=== PATIENT | female | born 1945 | race Caucasian/White ===

== ENCOUNTER 2020-01-28 13:53 | Outpatient (RCR) | payer MEDICARE, SELFPAY ==
--- NOTE | 2020-01-28 14:52 | PTOPEVAL ---
Thank you for referring Ally Fulton to [facility]. Please review, sign, date and return this plan of care ASHLEY. I agree with and certify that the following plan of care is medically necessary. Referring Physician Date Admitting Provider: Attending Provider: Rob Hadley MD Referring Provider: *PT Outpatient Evaluation Start: 01/28/20 14:13 Freq: Status: Active Protocol: Document 01/28/20 14:13 OWEN (Rec: 01/28/20 14:51 OWEN [id number]) Therapy Assessment Status Assessment Status Assessment Status Evaluation Evaluation Information Problem Diagnosis left hip OA, left hip pain Onset 05/22/19 Subjective Information Pt. reports that she developed Query Text:As Reported By Patient/ leg and back pain Family approximately beginning of May. She states that she would walk daily, but states that pain has limited her ability to walk recently and she now requires a cane. She describes pain in the left groin and occassionally into the low back. She reports she has undergone managed care specialist and accupuncture without relief. She reports that she cannot stand on the left leg to put her pants on without pain and the left leg giving out. Pt. reports that her goal would be to walk without her limp. Prior Level of Function Activity Level (Last 3 Months) Occupation retired Hand Dominance Right Activity of Daily Living Ability Independent Indoor/Home Mobility Independent Community Mobility Independent Stairs Ability Independent Functional Cognition (Planning, Shopping Independent , Taking Medications) Cooking Yes Cleaning Yes Laundry Yes Shopping Yes Driving Yes Pain Assessment Pain Scale Pain Scale Used Numeric (1 - 10) Self Report Pain Assessment Left Groin Reported Pain Level 8 Pain Description Sharp Pain Frequency Chronic Lowest Pain Intensity 8 Greatest Pain Intensity 10 Pain Aggravating Factors Walking Pain Relief Interventions Used By Sitting
== END 2020-02-26 10:37 | disposition home or self-care (01) ==
LOC: CHSPT 13:53
PROVIDERS: Visit Provider Orthopaedic Surgery
DX: M16.12 Unilateral primary osteoarthritis, left hip (principal)
CPT/HCPCS: 97014; 97110; 97161; G0283

== ENCOUNTER 2020-02-06 14:03 | Outpatient (CLI) | payer MEDICARE, SELFPAY ==
--- NOTE | ~2020-02-06 | XR_ITS ---
EXAMINATION: XR lg joint inject/asp w image DATE: 02/06/2020 14:55 INDICATION: Left hip arthritis TECHNIQUE: A time-out was performed to verify the patient's name, date of , and procedure to b e performed. The procedure including the risks, benefits, and alternatives was discussed with the pat ient. Risks discussed included bleeding and infection. The patient understood the risks and agreed to proceed. The skin overlying the left hip joint was prepped and draped in usual sterile fashion. An esthetic was administered with 1% lidocaine subcutaneously. A 22 G needle was advanced under fluoros copic guidance into the joint. Injection of 0.6 mL of Omnipaque 240 confirmed intra-articular positi on of the needle. Subsequently, injectate consisting of 4 mL of a 1:1 mixture of 0.5% bupivacaine: 4 0 mg/mL Depo-Medrol for a total dose of 80 mg Depo-Medrol was instilled. Washout of contrast was seen confirming intra-articular administration. The needle was removed and the entry site was cleaned and dressed. There were no immediate complications. Fluoroscopy exposure time was 0.1 minutes. The tota l number of images was 2. FINDINGS: Real-time fluoroscopy demonstrates the needle in the left hip joint. Patient's pain prior t o procedure:03/31. Patient's pain following the procedure: 12/29. IMPRESSION: 1. Left hip injection of local anesthetic and steroid with decrease in the patient's presenting pain. Reviewed, dictated and finalized at location A. IMPRESSION: 1. Left hip injection of local anesthetic and steroid with decrease in the melvina ent's presenting pain.
== END 2020-02-06 14:04 | disposition home or self-care (01) ==
LOC: CHSIMG 14:06
PROVIDERS: Visit Provider Orthopaedic Surgery
DX: M16.12 Unilateral primary osteoarthritis, left hip (principal)
CPT/HCPCS: 20610; 77002; J1030; Q9965

== ENCOUNTER 2020-06-18 13:35 | Outpatient (CLI) | payer MEDICARE, SELFPAY ==
--- NOTE | ~2020-06-18 | XR_ITS ---
XR hip BI 2V w AP pelvis 06/18/2020 15:20 Indication: Osteoarthritis. Hip pain. Procedure: AP pelvis and 2 views each hip Comparison: No prior studies for comparison. Findings: There is severe osteoarthritis of the hips, left greater than right. There is near complete loss of joint space superiorly with subchondral sclerosis and lucency. Cannot exclude avascular necr osis particularly in the left femoral head. There is advanced spondylosis of the visualized lower lum bar spine. Pelvic rings are intact. Impression: 1: Severe degenerative changes of the hips and lower lumbar spine. Reviewed, dictated and finalized at location A. Impression: 1: Severe degenerative changes of the hips and lower lumbar spine.
--- NOTE | ~2020-06-18 | XR_ITS ---
EXAMINATION: XR lg joint inject/asp add DATE: 06/18/2020 15:24 INDICATION: Left hip pain TECHNIQUE: Timeout at risk/benefit discussion were performed prior to right hip injection. The skin o verlying the left hip joint was prepared and draped in usual sterile fashion. The skin and subcutaneo us tissues were infiltrated with 1% lidocaine for local anesthesia. A 22 G needle was advanced under fluoroscopic guidance into the joint. Injection of 2 mL of Omnipaque 240 confirmed intra-articular p osition of the needle. Subsequently, injectate consisting of 80 mg (2 cc) of Depo-Medrol and 2 cc of 0.5% bupivacaine was instilled. The needle was removed and the entry site was cleaned and dressed. Th ere were no immediate complications. Fluoroscopy exposure time was 0.2 minutes. The DAP for this proc edure was 0.918 Gycm2. FINDINGS: Real-time fluoroscopy demonstrates the needle in the left hip joint. Patient's pain prior t o procedure:02/28. Patient's pain following the procedure: 12/29. IMPRESSION: 1. Successful left hip injection of local anesthetic and steroid with decrease in the patient's prese nting pain. Reviewed, dictated and finalized at location A. IMPRESSION: 1. Successful left hip injection of local anesthetic and steroid with decrease in the patient's presenting pain.
--- NOTE | ~2020-06-18 | XR_ITS ---
EXAMINATION: XR lg joint inject/asp w image DATE: 06/18/2020 15:24 INDICATION: Right hip pain TECHNIQUE: A time-out was performed to verify the patient's name, date of , and procedure to b e performed. The procedure including the risks and benefits was discussed with the patient. Risks dis cussed included bleeding and infection. The patient understood the risks and agreed to proceed. The skin overlying the right hip was prepared and draped in usual sterile fashion. The skin and subcutane ous tissues were infiltrated with 1% lidocaine for local anesthesia. A 22 G needle was advanced under fluoroscopic guidance into the joint. Injection of 2 mL of Omnipaque 240 confirmed intra-articular p osition of the needle. Subsequently, injectate consisting of 80 mg (2 cc) of Depo-Medrol and 2 cc of 0.5% bupivacaine were instilled. The needle was removed and the entry site was cleaned and dressed. T here were no immediate complications. Fluoroscopy exposure time was 0.2 minutes. The DAP for this pro cedure was 0.819 Gycm2. FINDINGS: Real-time fluoroscopy demonstrates the needle in the right hip joint. Patient's pain prior to procedure:03/31. Patient's pain following the procedure: 11/29. IMPRESSION: 1. Successful right hip injection of local anesthetic and steroid with decrease in the patient's pres enting pain. Reviewed, dictated and finalized at location A. IMPRESSION: 1. Successful right hip injection of local anesthetic and steroid with decrease in the patient's presenting pain.
== END 2020-06-18 13:36 | disposition home or self-care (01) ==
PROVIDERS: Visit Provider Orthopaedic Surgery
DX: M16.11 Unilateral primary osteoarthritis, right hip (principal); M16.12 Unilateral primary osteoarthritis, left hip
CPT/HCPCS: 20610; 73521; 77002; J1030; Q9965

== ENCOUNTER 2020-07-02 09:38 | Outpatient (CLI) | payer MEDICARE, SELFPAY ==
--- NOTE | ~2020-07-02 | XR_ITS ---
EXAMINATION: XR lumbar spine 2-3V EXAM DATE: 07/02/2020 10:14 INDICATION: Spondylosis with radiculopathy, lumbar region to bilat hips . Lumbar pain. TECHNIQUE: Lumber spine frontal, lateral, lateral L5-S1 projections for interpretation. There is no prior study for comparison. FINDINGS: Moderate lumbar dextroscoliosis. There is severe lumbar disc disease. About 3 mm retrolist hesis L2 on L3 and L3 on L4 and about 3 mm anterolisthesis L4 on L5. Moderate to severe lumbar facet arthropathy. Sacrum, sacroiliac joints, sacral arcuate lines are intact. IMPRESSION: 1. Advanced lumbar spondylosis. 2. Moderate dextroscoliosis. Reviewed, dictated and finalized at location A. LY ROOM CLERK
--- NOTE | ~2020-07-02 | MR_ITS ---
EXAMINATION: MR lumbar spine wo con DATE: 07/02/2020 10:54 INDICATION: Other spondylosis with radiculopathy. TECHNIQUE: Magnetic resonance imaging (MRI) of the lumbar spine was performed without intravenous con trast. Sequences included sagittal T2-weighted FSE, sagittal T2-weighted FS FSE, sagittal T1-weighted FSE, and axial T2-weighted FSE. COMPARISON: Lumbar spine radiographs 07/02/2020 FINDINGS: There is 19 degrees dextroscoliosis of lumbar spine. There is 3 mm retrolisthesis of L1 on L2, L2 on L3, and L3 on L4 and 4 mm anterolisthesis of L4 on L5. Vertebral body heights are normal. T here is severely decreased disc height from L1-L2 through L5-S1. The distal spinal cord signal intens ity is normal. The conus medullaris is at L1. There is a 2.8 cm cyst in left kidney. The following di sc levels are specifically discussed: L1-L2: The disc is bulging and has an annular fissure. There is severe bilateral facet joint osteoart hritis. There is mild right and moderate left neural foraminal stenosis. There is mild central canal stenosis. L2-L3: The disc is bulging and has an annular fissure. There is mild right and moderate left facet maddy int osteoarthritis. There is mild right and moderate left neural foraminal stenosis. There is mild ce ntral canal stenosis. L3-L4: The disc is bulging and has an annular fissure. There is severe right and moderate left facet joint osteoarthritis. There is moderate right and mild left neural foraminal stenosis. There is mild central canal stenosis. L4-L5: The disc is bulging and has an annular fissure. There is severe bilateral facet joint osteoart hritis. There is mild bilateral neural foraminal stenosis. There is mild central canal stenosis. L5-S1: The disc is bulging and has an annular fissure. There is severe right and moderate left facet joint osteoarthritis. There is mild bilateral neural foraminal stenosis. There is mild central canal stenosis. IMPRESSION: 1. Severe lumbar spondylosis. 2. Lumbar dextroscoliosis. Reviewed, dictated and finalized at location B. PRINTER
== END 2020-07-02 09:39 | disposition home or self-care (01) ==
LOC: CHSIMG 09:43
PROVIDERS: Visit Provider Orthopaedic Surgery
DX: M47.26 Other spondylosis with radiculopathy, lumbar region (principal)
CPT/HCPCS: 72100; 72148

== ENCOUNTER 2021-02-12 09:48 | Outpatient (CLI) | payer MEDICARE, SELFPAY ==
--- NOTE | 2021-02-12 11:08 | ECG_ITS ---
Measurements Intervals [place] Rate: 65 P: 69 MD: 148 QRS: -3 QRSD: 78 T: 35 QT: 415 QTc: 431 Interpretive Statements SINUS RHYTHM POSSIBLE LEFT ATRIAL ENLARGEMENT BASELINE ARTIFACT- I, III, AVR, AVL, AVF, V1-V6 BORDERLINE ECG Electronically Signed On 02-12-2021 11:32:29 CDT by Usman Bolden D.O.
[2021-02-12 11:39] LABS: Basophils Absolute Auto 0.1 K/mm3 (0.0-0.1); Basophils Percent Auto 0.7 % (0.2-1.2); Eosinophils Percent Auto 0.5 % (0-4.4); Hematocrit 44.2 % (37.0-47.0); Immature Granulocyte Absolute 0.02 K/mm3 (0.00-0.031); Immature Granulocyte Percent A 0.2 % (0-0.5); Lymphocytes Absolute Auto 1.98 K/mm3 (0.9-3.2); Mean Corpuscular HGB Conc 31.7 g/dl (32-36); Mean Corpuscular Hemoglobin 31.2 pg (26-34); Mean Corpuscular Volume 98.4 fl (80-100); Mean Platelet Volume 8.6 fl (7.4-10.4); Monocytes Absolute Auto 0.7 K/mm3 (0.1-0.6); Monocytes Percent Auto 8.6 % (2.6-8.5); Neutrophils Absolute Auto 5.8 K/mm3 (1.3-6.7); Platelet Count Result 372 k/mm3 (150-375); Red Blood Count 4.49 M/mm3 (4.2-5.4); Red Cell Distribution Width 13.8 % (11.5-14.5); White Blood Count 8.6 K/mm3 (4.5-10.0)
[2021-02-12 11:47] LABS: Add Urine Microscopic? YES; Appearance Urine Cloudy (Clear); Bilirubin Urine Negative (Negative); Blood Urine Negative (Negative); Color Urine Amber (Yellow); Glucose Urine UA Negative (Negative); Ketones Urine Negative (Negative); Leukocyte Esterase Ur Negative LEU/UL (Negative); Mucus Urine Rare /lpf; Nitrate Urine Negative (Negative); Protein Urine Negative (Negative); Specific Grav Ur 1.019 (1.001-1.035); Squamous Epithelial Cell Urine Rare /hpf (Few); Urobilinogen Urine Negative mg/dL (<2.0); WBC Urine 0-3 /hpf
[2021-02-12 11:49] LABS: Albumin Level 4.3 g/dL (3.5-5.1); Anion Gap 7 mmol/L (8-16); Blood Urea Nitrogen 22 mg/dL (7-17); Calcium 9.6 mg/dL (8.4-10.2); Carbon Dioxide 27 mmol/L (22-30); Chloride 107 mmol/L (98-107); Estimated Glomerular Filt Rate > 60; Glucose 109 mg/dL (65-105); Potassium 4.1 mmol/L (3.4-5.0); Sodium 141 mmol/L (137-145)
[2021-02-12 11:52] LABS: Hemoglobin A1C 5.6 % (<5.7)
[2021-02-12 11:59] LABS: Prothrombin Time 13.3 Seconds (11.1-14.7)
[2021-02-12 12:00] LABS: Partial Thromboplastin Time 27.4 SECONDS (22.3-36.8)
[2021-02-12 12:01] LABS: Urine Cotinine NEGATIVE
== END 2021-02-12 09:49 | disposition home or self-care (01) ==
PROVIDERS: PCP Family Medicine; Visit Provider Orthopaedic Surgery
DX: M16.9 Osteoarthritis of hip, unspecified (principal); Z01.818 Encounter for other preprocedural examination
CPT/HCPCS: 80048; 80307; 81001; 82040; 83036; 85025; 85610; 85730; 86850; 86900; 86901; 87081; 93005

== ENCOUNTER 2021-02-25 13:47 | Observation (INO) | payer MEDICARE, SELFPAY ==
[2021-02-12 10:04] VITALS: BMI 25.4
[2021-02-12 11:07] VITALS: BP 145/73; PULSE 68; RESP 16; TEMP 37; O2SAT 98
[2021-02-24] VITALS (16 sets, daily range): BP systolic 106–153; BP diastolic 45–71; PULSE 64–84; RESP 15–20; TEMP 36.3–37.8; O2SAT 93–100
[2021-02-24] MEDS: ACETAMINOPHEN 500 MG TABLET 1000 MG PO (06:31)
[2021-02-24] MEDS: LACTATED RINGERS 1,000 ML 30 ML IV CONT ×2 (06:35→10:25)
[2021-02-24] MEDS: TRANEXAMIC ACID 1,000MG/ISO100 1,000 MG/100 ML BAG 200 MG IVPB (06:45)
--- NOTE | 2021-02-24 07:04 | WPDANESEPPF ---
Anes - Initial Pre Proc Eval Procedure: Operation Date: 02/24/21 07:30 Proposed Procedures p Right Total Hip Arthroplasty - Piotr Manzano MD Date/Time: 02/24/21 07:04 Surgeon: Piotr Manzano MD Pre Op Diagnosis: Right hip OA Patient Data Age: 76 Gender: F Height: 1.55 m Weight: 59.8 kg Last Vital Signs Temp 98.8 F 02/24/21 06:10 Pulse 70 02/24/21 06:10 Resp 20 02/24/21 06:10 BP 153/60 H 02/24/21 06:10 Pulse Ox 95 02/24/21 06:10 Allergies Allergy/AdvReac Type Severity Reaction Status Date / Time No Known Allergies Allergy Verified 02/24/21 06:20 Home Medications Medication Instructions Recorded Confirmed Type ibuprofen 200 mg tablet 200 mg PO Q6H PRN 06/16/20 02/24/21 History chlorhexidine gluconate 4 % 1 applic TOPICAL ONCE #237 ml 01/20/21 02/24/21 Rx topical liquid acetaminophen 500 mg tablet 500 mg PO DAILY PRN tablet 02/12/21 02/24/21 History fluticasone propionate [Flonase 1 spray INTRANASAL DAILY 02/12/21 02/24/21 History Allergy Relief] glucos sul [id number]-Mn 1 cap PO TID 02/12/21 02/24/21 History [Glucosamine Chondroitin] iron-vitamin B complex 1 tablet PO EVERY OTHER DAY 02/12/21 02/24/21 History meclizine 25 mg chewable tablet 25 mg PO HS 02/12/21 02/24/21 History melatonin 3 mg PO HS 02/12/21 02/24/21 History nkhfy-8l-gcw-epa-fish oil [[place] 3] 1 cap PO TID 02/12/21 02/24/21 History vitamin E 400 unit PO WEEKLY 02/12/21 02/24/21 History vitamins A,C,W-frsk-reeefc 1 cap PO DAILY 02/12/21 02/24/21 History [PreserVision AREDS] zinc 1 mg PO DAILY 02/12/21 02/24/21 History Patient hx anesthesia problems: none Family hx anesthesia problems: none PMFSH Past Medical History Medical History Hip arthritis Obesity Other spondylosis with radiculopathy, lumbar region Social History Social History (Updated 02/12/21 @ 08:55 by Tiffany Heard MA) Years smoked: 55 Smoking status: Never smoker Tobacco type: cigarettes Smoking end date: 01/21/21 Additional smoking assessment comments: DENIES ANY FORM OF TOBACCO USE Alcohol intake: never Drinks per week: 1 Substance use: never Living arrangements: with family Spiritual care concerns: No Anes - Eval Final PreProcedure Day of Procedure 02/24/21 07:04 Patient weight: normal Heart: regular rate and rhythm Lungs: clear to auscultation Airway: Mallampati scale class II Neurological: alert and oriented Last oral intake: >/= 8 hours ASA classification: II Emergent: no Anesthetic plan: proceed Anesthesia type and monitoring: general ETT and standard monitoring Informed Consent: The patient's anesthetic plan and its attendant risks and benefits were discussed with the patient/family/POA. Questions were solicited and answers provided to the satisfaction of the patient/family/POA.
--- NOTE | 2021-02-24 07:15 | WPDHPUPDATE1 ---
History and Physical Update Update Date/Time: 02/24/21 07:15 History and Physical has been reviewed, including an updated exam of the patient. There are NO changes in the patient's condition. Risks, benefits, and alternatives have been discussed and questions answered. Patient agrees to proceed with procedure.
[2021-02-24] MEDS: ceFAZolin 2 GM/D5W 50 ML 2 GM/50 ML BAG IVPB ×2 (07:31→15:41)
--- NOTE | 2021-02-24 10:28 | W.PM.PROC2 ---
Procedure Note - Detailed Date of Procedure 02/24/21 Pre-op Diagnosis Right hip OA Post-op Diagnosis same Procedure Performed R REZA Surgeon Piotr Manzano MD Marketing Coordinator MARANDA CARCAMO MD Anesthesia general Indications RIGHT HIP SEVERE DJD Findings FEMORAL HEAD COLLAPSE Description of Procedure THE PATIENT WAS TAKEN TO THE OPERATING ROOM IN STABLE CONDITION AND WAS PLACED IN THE LATERAL DECUBITUS AND THE RIGHT LOWER EXTREMITY WAS PREPPED AND DRAPED IN THE STERILE FASHION. INCISION WAS MADE IN THE POSTERIOR LATERAL SIDE OF THE HIP, DOWN TO THE FASCIA LAYER. THE FASCIA WAS INCISED. THE HIP WAS EXPOSED. THE SHORT EXTERNAL ROTATORS WERE EXPOSED. THE SCIATIC NERVE WAS IDENTIFIED. THERE WAS A HIGH BIFURCATION OF THE NERVE. INCISION WAS MADE THROUGH THE SORT EXTERNAL ROTATORS AND THE CAPSULE OF THE HIP JOINT. THE HIP WAS DISLOCATED. AN OSTEOTOMY WAS MADE TO THE FEMORAL NECK ABOUT 1 CM PROXIMAL TO THE LESSER TROCHANTER. THE ACETABULUM WAS EXPOSED. THERE WAS SEVERE DJD SEEN. BEGINNING WITH A 44 REAMER THE ACETABULUM WAS REAMED TO 49 MM. A 49 MM TRIAL WAS PLACED IN 35 DEG OF ABDUCTION AND ANTEVERSION WAS IN ALIGNMENT WITH THE TRANSVERSE ACETABULAR LIGAMENT. THE FIT WAS EXCELLENT. THE TRIAL WAS REMOVED. A 50 MM BIOMET G7 COMPONENT WAS THEN TAPPED IN TO PLACE IN 35 DEG OF ABDUCTION AND ANTEVERSION IN ALIGNMENT WITH THE TRANSVERSE ACETABULAR LIGAMENT. THE FIT WAS EXCELLENT. THE ACETABULAR LINER WAS PLACED AND CHECKED FOR STABILITY. NEXT THE FEMUR WAS PREPARED WITH INITIAL CANAL FINDER THEN SEQUENTIAL BROACHING WITH A TAPERLOC HIP SYSTEM, UNTIL A 10 BROACH FIT WELL IN 15 OF ANTEVERSION. A -3 HIGH OFFSET NECK WITH 36 MM HEAD TRIAL WAS PLACED. THE LUKE TEST WAS EXCELLENT AND THE STABILITY IN FLEXION AND ROTATION WAS EXCELLENT. LEG LENGTHS WERE GROSSLY EQUAL. TRIALS WERE REMOVED. A BIOMET TAPERLOC 10 STEM WAS PLACED WITH A HIGH OFFSET NECK. THE FIT WAS EXCELLENT IN 15 DEG OF ANTEVERSION. A -3 CERAMIC 36 MM FEMORAL HEAD WAS PLACED. THE HIP WAS TRIALED AND THE STABILITY WAS EXCELLENT WERE THE LEG LENGTHS AND THE SCHUK TEST. THE WOUND WAS IRRIGATED WITH STERILE BETADINE AND WATER FOR 3 MIN. THEN WASHED AGAIN. THE CAPSULE AND THE EXTERNAL ROTATORS WERE APPROXIMATED WITH NUMBER 1 VICRYL. THE FASCIA WITH No 2 QUIL AND THE SUB CUTANEOUS LAYER WITH 2-0 ABSORBABLE SUTURE WITH A RUNNING 3-0 SUBCUTICULAR LAYER WELL. DERMABOND WAS PLACED AND STERILE DRESSING WAS APPLIED. PATIENT WAS PLACED BACK ON TO THE SUPINE POSITION AND WAS EXTUBATED Estimated Blood Loss 200 Drains No Complications No immediate complications Condition stable Disposition PACU
[2021-02-24] MEDS: fentaNYL CITRATE INJ (*CRX) 100 MCG/2 ML VIAL 25 MCG IV PUSH ×4 (10:40→11:04)
[2021-02-24] MEDS: HYDROmorphone HCL INJ (*CRX) 1 MG/ML SYR 0.25 MG IV PUSH (11:09)
[2021-02-24] MEDS: MEPERIDINE HCL INJ (*CRX) 50 MG/ML AMPUL 12.5 MG IV PUSH (11:11)
--- NOTE | 2021-02-24 12:25 | ADMGEN ---
This patient, Ally Fulton, was admitted to 2 Medical Room 257-01. Patient/family oriented to hospital policies and general routines including ID bracelet, bed and alarms, visiting hours, pain management, procedures, bathroom and other care routines, personal items, smoking policy, room service/diet, and visiting hours. Information on how to activate the Rapid Response Team has been discussed. Patient/Family are encouraged to report perceived risks to care and to ask questions if they do not understand what they are told or what they should do.
[2021-02-24 12:33] LABS: Hemoglobin 12.2 g/dL (12.0-15.0)
[2021-02-24] MEDS: HYDROcodone/acetaminophen (*CRX) 7.5-325 MG TABLET 1 TAB PO ×3 (13:23→20:42)
--- NOTE | 2021-02-24 15:25 | PM.IMCN ---
Assessment and Plan Assessment and plan (1) History of total left hip arthroplasty: Code(s): Z96.642 - Presence of left artificial hip joint Status: Acute Assessment and Plan: The patient is feeling well after her surgery. She has already done physical, occupational therapy and set up in the chair earlier. Pain management, discharge planning, postop care, DVT prophylaxis per orthopedic surgeon medically she is stable at this point. Post op H&H stable. (2) Degenerative joint disease (DJD) of hip: Qualifiers: Laterality: bilateral Osteoarthritis type: primary Qualified Code(s): M16.0 - Bilateral primary osteoarthritis of hip Code(s): M16.9 - Osteoarthritis of hip, unspecified Status: Acute Assessment and Plan: see above (3) Hip arthritis: Code(s): M16.10 - Unilateral primary osteoarthritis, unspecified hip Status: Acute Assessment and Plan: see above (4) Smoking history: Code(s): Z87.891 - Personal history of nicotine dependence Status: Acute Assessment and Plan: patient quit smoking 5 weeks ago. She was only smoking 4-5 cigarettes per day. She has been smoking since 16 years of age. She has not needed any type of nicotine patch. she does not need 1 at this time. Smoking sensation given to continue smoking after her surgery. She does not know if she wants a quit smoking for ever or not. HPI Data of Consult Consult date: 02/24/21 Requesting Physician: Piotr Manzano MD Primary Care Provider: Abdullahi Cardozo DO Consult Narrative Narrative: Ally Fulton is a 76 year old female with a history of severe DJD of bilateral hips, who is admitted into the hospital after having a left Total hip arthroplasty today, 02/24/21. The patient had been having bilateral hip pain for years. She was getting cortisone injections within the past 3 months without much improvement. the patient has not seen a doctor since 1999. She only takes wvyr-vgn-uiczqws medications and vitamins. she reported slight nausea after eating her soup for lunch today, but then it resolved. She denies any chest pain, shortness of breath, fever, chills, vomiting, abdominal pain, Diarrhea, constipation, leg swelling, calf pain, lightheadedness, dizziness or any other symptoms at this time. 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, noncancerous Hx of total hysterectomy 1984- Abnormal uterine bleeding and uterine fibroids found Social History Social History (Updated 02/24/21 @ 16:15 by Nanette Gomes PA-C) Years smoked: 50 Smoking status: Former smoker Alcohol intake: current Drinks per week: 1 Substance use: never Substance use type: does not use Living arrangements: with family Occupation/Education: retired Spiritual care concerns: No Meds Home Medications and Allergies Home Medications Medication Instructions Recorded Confirmed Type ibuprofen 200 mg tablet 200 mg PO Q6H PRN 06/16/20 02/24/21 History chlorhexidine gluconate 4 % 1 applic TOPICAL ONCE #237 ml 01/20/21 02/24/21 Rx topical liquid acetaminophen 500 mg tablet 500 mg PO DAILY PRN tablet 02/12/21 02/24/21 History fluticasone propionate [Flonase 1 spray INTRANASAL DAILY 02/12/21 02/24/21 History Allergy Relief] glucos sul [id number]-Mn 1 cap PO TID 02/12/21 02/24/21 Hi
--- NOTE | 2021-02-24 16:34 | PM.PNORT ---
Progress Note: A&P Assessment and Plan (1) Degenerative joint disease (DJD) of hip: Qualifiers: Osteoarthritis type: primary Laterality: bilateral Qualified Code(s): M16.0 - Bilateral primary osteoarthritis of hip Code(s): M16.9 - Osteoarthritis of hip, unspecified Status: Acute Assessment and Plan: RT REZA this AM. H/H stable Alert, oriented x 3. Pain control. PT/OT- wbat Appreciate hospitalist coverage Subjective Subjective Date/Time Seen: 02/24/21 16:34 Post Op day: 0 Principal diagnosis: RT REZA Interval history: Patient awake, alert. Comfortable Exam Const: General: healthy appearing; No in distress or confusion Orientation/consciousness: patient oriented x3 and No confusion HENMT: Head: normal to inspection, normocephalic and atraumatic Eyes: Conjunctivae: conjunctivae normal Sclera: sclerae normal Resp: Effort & Inspection: normal respiratory effort and no audible wheezes Neuro: General: patient oriented x3 and No confusion Extrem: Right lower extremity: foot Details: toes with normal ROM, vascular exam Details: dorsalis pedis pulse present and normal capillary refill and motor-sensory exam Details: light-touch normal Location: in all toes Psych: Affect: normal affect Objective Data Vital Signs Vital Signs: Vital Signs - 24 hr 02/24/21 06:10 02/24/21 10:30 02/24/21 10:45 Temperature 98.8 F 97.4 F L Pulse Rate 70 64 69 Respiratory Rate 20 18 16 Blood Pressure 153/60 H 120/46 L 137/62 Pulse Oximetry 95 100 100 02/24/21 11:00 02/24/21 11:15 02/24/21 11:30 Temperature Pulse Rate 69 74 80 Respiratory Rate 18 15 16 Blood Pressure 150/71 H 152/57 H 116/49 L Pulse Oximetry 100 100 96 02/24/21 11:45 02/24/21 12:00 02/24/21 12:11 Temperature 100.1 F H 99.1 F 97.7 F Pulse Rate 80 76 82 Respiratory Rate 15 20 16 Blood Pressure 113/53 L 114/55 L 121/53 L Pulse Oximetry 95 96 99 02/24/21 12:26 Temperature 97.7 F Pulse Rate 80 Respiratory Rate 16 Blood Pressure 130/52 L Pulse Oximetry 99 Intake/Output Intake/Output: Intake & Output 02/21/21 02/22/21 02/23/21 02/24/21 23:59 23:59 23:59 23:59 Intake Total 450 Balance 450 Meds/Results Medications: Active Medications Generic Name Dose Route Start Last Admin Trade Name Freq PRN Reason Stop Dose Admin Acetaminophen 500 mg 02/24/21 12:11 Acetaminophen 500 Mg Tablet PO DAILY PRN Pain Hydrocodone Bitart/Acetaminophen 1 tab 02/24/21 12:11 02/24/21 13:23 Hydrocodone/Acetaminophen (*Crx) 7.5-325 Mg Tablet PO 1 tab Q3H PRN Administration Pain Rated 4-6 Al Hydrox/Mg Hydrox/Simethicone 30 ml 02/24/21 12:11 Mag Hydrox/Al Hydrox/Simeth 30 Ml Udc PO Q6H PRN Indigestion Aspirin 325 mg 02/24/21 21:00 Aspirin 325 Mg Enteric Tablet PO Q12HR LEXIE Celecoxib 200 mg 02/25/21 09:00 Celecoxib 200 Mg Capsule PO DAILY LEXIE Diazepam 5 mg 02/24/21 12:11 Diazepam (*Crx) 5 Mg Tablet PO Q6H PRN Anxiety/Muscle Spasm Docusate Sodium 100 mg 02/24/21 17:00 Docusate Sodium 100 Mg Capsule PO BID LEXIE Famotidine 20 mg 02/24/21 21:00 Famotidine 20 Mg Tablet PO Q12HR LEXIE Hydroxyzine HCl 50 mg 02/24/21 12:11 Hydroxyzine Hcl 25 Mg Tablet PO Q4H PRN Itching Cefazolin Sodium 2 gm in 50 mls @ 100 mls/hr 02/24/21 15:00 02/24/21 15:41 Ancef 2 Gm/D5w 50 Ml IVPB 02/25/21 07:29 100 mls/hr Q8H LEXIE Administration Dextrose/Sodium Chloride 1,000 mls @ 80 mls/hr 02/24/21 12:11 Dextrose 5% Sodium Chloride 0.45% IV CONT .[id number] LEXIE Magnesium Hydroxide 30 ml 02/24/21 12:11 Magnesium Hydroxide Susp 30 Ml Udc PO BID PRN Constipation Meclizine HCl 25 mg 02/24/21 21:00 Meclizine Hcl 25 Mg Tablet PO HS LEXIE Melatonin 3 mg 02/24/21 21:00 Melatonin 3 Mg Tablet PO HS LEXIE Morphine Sulfate 3 mg 02/24/21 12:11 Morphine Sulfate (*Crx) 4 Mg/Ml
[2021-02-24] MEDS: DOCUSATE SODIUM 100 MG CAPSULE PO (16:41)
[2021-02-24] MEDS: MECLIZINE HCL 25 MG TABLET PO (20:41)
[2021-02-24] MEDS: MELATONIN 3 MG TABLET PO (20:42)
[2021-02-24] MEDS: ASPIRIN 325 MG ENTERIC TABLET PO (20:42)
[2021-02-24] MEDS: FAMOTIDINE 20 MG TABLET PO (20:42)
[2021-02-25] VITALS (7 sets, daily range): BP systolic 102–131; BP diastolic 43–49; PULSE 73–89; RESP 16–18; TEMP 36.6–37.2; O2SAT 94–98
--- NOTE | ~2021-02-25 | XR_ITS ---
EXAMINATION: XR hip RT 1V DATE: 02/24/2021 10:36 INDICATION: Right hip arthroplasty. Postop. TECHNIQUE: A single view of right hip was obtained. COMPARISON: Right hip radiograph 02/12/2021 FINDINGS: There is a total right hip arthroplasty in near-anatomic alignment. No fracture. There is s evere lumbar spondylosis. There is gas in the soft tissues, consistent with recent surgery. IMPRESSION: 1. Total right hip arthroplasty in near-anatomic alignment. Reviewed, dictated and finalized at location A.
[2021-02-25] MEDS: ceFAZolin 2 GM/D5W 50 ML 2 GM/50 ML BAG IVPB ×2 (00:11→06:44)
[2021-02-25] MEDS: HYDROcodone/acetaminophen (*CRX) 7.5-325 MG TABLET 1 TAB PO ×6 (01:05→20:57)
[2021-02-25 05:46] LABS: Basophils Percent Auto 0.3 % (0.2-1.2); Eosinophils Percent Auto 0.1 % (0-4.4); Hematocrit 34.4 % (37.0-47.0); Immature Granulocyte Absolute 0.06 K/mm3 (0.00-0.031); Immature Granulocyte Percent A 0.4 % (0-0.5); Lymphocytes Absolute Auto 1.94 K/mm3 (0.9-3.2); Lymphocytes Percent Auto 14.1 % (18.3-44.2); Mean Corpuscular Hemoglobin 31.6 pg (26-34); Mean Corpuscular Volume 98.9 fl (80-100); Mean Platelet Volume 8.8 fl (7.4-10.4); Monocytes Percent Auto 14.5 % (2.6-8.5); Neutrophils Absolute Auto 9.7 K/mm3 (1.3-6.7); Neutrophils Percent Auto 70.6 % (45.5-73.1); Platelet Count Result 301 k/mm3 (150-375); Red Blood Count 3.48 M/mm3 (4.2-5.4); Red Cell Distribution Width 14.1 % (11.5-14.5); White Blood Count 13.8 K/mm3 (4.5-10.0)
[2021-02-25 05:50] LABS: Anion Gap 9 mmol/L (8-16); Blood Urea Nitrogen 18 mg/dL (7-17); Calcium 9.1 mg/dL (8.4-10.2); Carbon Dioxide 23 mmol/L (22-30); Chloride 104 mmol/L (98-107); Estimated CRCL calculation 38 ml/min; Estimated Glomerular Filt Rate > 60; Glucose 124 mg/dL (65-105); Potassium 4.1 mmol/L (3.4-5.0); Sodium 136 mmol/L (137-145)
--- NOTE | 2021-02-25 07:44 | WPDANESPN ---
Anes - Prog Note Post-Op Date/Time: 02/25/21 07:44 Cardiovascular status: normal Respiratory status: normal Airway patency: baseline Mental status: baseline Post-Op hydration status: normal Vital Signs: Last Vital Signs Temp 36.6 C 02/25/21 05:30 Pulse 81 02/25/21 05:30 Resp 18 02/25/21 05:30 BP 124/43 L 02/25/21 05:30 Pulse Ox 94 02/25/21 05:30 Pain Score (VAS): 210 I/O: Intake & Output 02/24/21 02/24/21 02/25/21 15:59 23:59 07:59 Intake Total 350 890 500 Output Total 600 300 Balance 350 290 200 Laboratory Tests 02/25/21 05:24 02/25/21 05:24 02/24/21 02/25/21 02/25/21 12:25 05:24 05:24 WBC 13.8 H RBC 3.48 L Hgb 12.2 11.0 L Hct 37.0 34.4 L MCV 98.9 MCH 31.6 MCHC 32.0 RDW 14.1 Plt Count 301 MPV 8.8 Immature Gran % (Auto) 0.4 Neut % (Auto) 70.6 Lymph % (Auto) 14.1 L [place] % (Auto) 14.5 H Eos % (Auto) 0.1 Baso % (Auto) 0.3 Lymph # (Auto) 1.94 [place] # (Auto) 2.0 H Eos # (Auto) 0.0 Baso # (Auto) 0.0 Abs Immat Gran (auto) 0.06 H Absolute Neuts (auto) 9.7 H Absolute Nucleated RBC 0.0 Nucleated RBC % 0.0 Sodium 136 L Potassium 4.1 Chloride 104 Carbon Dioxide 23 Anion Gap 9 BUN 18 H Creatinine 0.80 Estim Creat Clear Calc 38 Estimated GFR > 60 Glucose 124 H Calcium 9.1 Post-procedural complaints: none Patient Feedback: Patient satisfied with anesthetic care.
--- NOTE | 2021-02-25 07:52 | PM.PNORT ---
Progress Note: A&P Assessment and Plan (1) Hip arthritis: Onset Date: 02/24/21 Code(s): M16.10 - Unilateral primary osteoarthritis, unspecified hip Status: Acute Assessment and Plan: postoperative day 1. Right total hip arthroplasty. Pain motion and weight-bearing right hip. Continue with pain medication regimen. H&H stable. Continue to monitor. PT/OT with weight-bearing as tolerated. Patient voiced preference on returning home upon discharge. Will continue to monitor pain control and her ability to ambulate. Subjective Subjective Date/Time Seen: 02/25/21 07:52 Post Op day: 1 Principal diagnosis: Right hip arthritis Interval history: patient awake and alert. Complaints of right hip pain with weight-bearing. States slept well overnight. Exam Const: General: healthy appearing; No in distress or confusion Orientation/consciousness: patient oriented x3 and No confusion HENMT: Head: normal to inspection, normocephalic and atraumatic Eyes: Conjunctivae: conjunctivae normal Sclera: sclerae normal Resp: Effort & Inspection: normal respiratory effort and no audible wheezes Neuro: General: patient oriented x3 and No confusion Extrem: Right lower extremity: hip/thigh ( Incision clean and dry, muscles soft, mild swelling) and foot Details: toes with normal ROM, vascular exam Details: dorsalis pedis pulse present and normal capillary refill and motor-sensory exam Details: light-touch normal Location: in all toes Psych: Affect: normal affect Objective Data Vital Signs Vital Signs: Vital Signs - 24 hr 02/24/21 10:30 02/24/21 10:45 02/24/21 11:00 Temperature 97.4 F L Pulse Rate 64 69 69 Respiratory Rate 18 16 18 Blood Pressure 120/46 L 137/62 150/71 H Pulse Oximetry 100 100 100 02/24/21 11:15 02/24/21 11:30 02/24/21 11:45 Temperature 100.1 F H Pulse Rate 74 80 80 Respiratory Rate 15 16 15 Blood Pressure 152/57 H 116/49 L 113/53 L Pulse Oximetry 100 96 95 02/24/21 12:00 02/24/21 12:11 02/24/21 12:26 Temperature 99.1 F 97.7 F 97.7 F Pulse Rate 76 82 80 Respiratory Rate 20 16 16 Blood Pressure 114/55 L 121/53 L 130/52 L Pulse Oximetry 96 99 99 02/24/21 12:56 02/24/21 14:00 02/24/21 16:38 Temperature 97.7 F 97.9 F Pulse Rate 80 76 Respiratory Rate 16 16 Blood Pressure 130/52 L 129/54 L Pulse Oximetry 99 98 93 02/24/21 17:56 02/24/21 19:31 02/24/21 22:00 Temperature 97.6 F 98.8 F 98.6 F Pulse Rate 84 84 72 Respiratory Rate 16 17 16 Blood Pressure 128/59 L 132/55 L 106/45 L Pulse Oximetry 99 99 94 02/25/21 02:00 02/25/21 05:30 Temperature 99.0 F 97.9 F Pulse Rate 80 81 Respiratory Rate 16 18 Blood Pressure 122/45 L 124/43 L Pulse Oximetry 94 94 Intake/Output Intake/Output: Intake & Output 02/22/21 02/23/21 02/24/21 02/25/21 23:59 23:59 23:59 23:59 Intake Total 1340 500 Output Total 600 300 Balance 740 200 Meds/Results Medications: Active Medications Generic Name Dose Route Start Last Admin Trade Name Freq PRN Reason Stop Dose Admin Acetaminophen 500 mg 02/24/21 12:11 Acetaminophen 500 Mg Tablet PO DAILY PRN Pain Hydrocodone Bitart/Acetaminophen 1 tab 02/24/21 12:11 02/25/21 05:27 Hydrocodone/Acetaminophen (*Crx) 7.5-325 Mg Tablet PO 1 tab Q3H PRN Administration Pain Rated 4-6 Al Hydrox/Mg Hydrox/Simethicone 30 ml 02/24/21 12:11 Mag Hydrox/Al Hydrox/Simeth 30 Ml Udc PO Q6H PRN Indigestion Aspirin 325 mg 02/24/21 21:00 02/24/21 20:42 Aspirin 325 Mg Enteric Tablet PO 325 mg Q12HR LEXIE Administration Celecoxib 200 mg 02/25/21 09:00 Celecoxib 200 Mg Capsule PO DAILY LEXIE Diazepam 5 mg 02/24/21 12:11 Diazepam (*Crx) 5 Mg Tablet PO Q6H PRN Anxiety/Muscle Spasm Docusate Sodium 100 mg 02/24/21 17:00 02/24/21 16:41 Docusate Sodium 100 Mg Capsule PO 100 mg BID LEXIE Administration Famotidine 20 mg 02/24/21 21:00 02/24/21 20:
[2021-02-25] MEDS: CELECOXIB 200 MG CAPSULE PO (08:51)
[2021-02-25] MEDS: FAMOTIDINE 20 MG TABLET PO ×2 (08:51→21:00)
[2021-02-25] MEDS: OPTI-GEN TAB 1 TABLET PO (08:51)
[2021-02-25] MEDS: ZINC SULFATE 220 MG CAPSULE PO (08:51)
[2021-02-25] MEDS: DOCUSATE SODIUM 100 MG CAPSULE PO ×2 (08:51→16:58)
[2021-02-25] MEDS: ASPIRIN 325 MG ENTERIC TABLET PO ×2 (08:51→21:00)
[2021-02-25] MEDS: diazePAM (*CRX) 5 MG TABLET PO (10:36)
--- NOTE | 2021-02-25 14:30 | PM.IMPN ---
Progress Note: A&P Assessment and Plan (1) History of total left hip arthroplasty: Code(s): Z96.642 - Presence of left artificial hip joint Status: Acute Assessment and Plan: The patient is feeling well after her surgery. She is not advancing as fast as she would have thought but her pain is better controlled and she is optimistic. Pain management, discharge planning, postop care, DVT prophylaxis per orthopedic surgeon medically she is stable at this point. Her labs are all stable today after having surgery. She has no acute complaints at this time. I am going to sign off of the patient but if anything arises medically do not hesitate to call me to, evaluate her. (2) Degenerative joint disease (DJD) of hip: Qualifiers: Laterality: bilateral Osteoarthritis type: primary Qualified Code(s): M16.0 - Bilateral primary osteoarthritis of hip Code(s): M16.9 - Osteoarthritis of hip, unspecified Status: Acute Assessment and Plan: see above (3) Hip arthritis: Onset Date: 02/24/21 Code(s): M16.10 - Unilateral primary osteoarthritis, unspecified hip Status: Acute Assessment and Plan: see above (4) Smoking history: Code(s): Z87.891 - Personal history of nicotine dependence Status: Acute Assessment and Plan: patient quit smoking 5 weeks ago. She was only smoking 4-5 cigarettes per day. She has been smoking since 16 years of age. She has not needed any type of nicotine patch. she does not need 1 at this time. Smoking sensation given to continue smoking after her surgery. She does not know if she wants a quit smoking for ever or not. Time Spent With Patient Time with patient: 25 - 35 minutes Subjective Date/time seen: 02/25/21 14:30 Interval history: Date of service 02/25/2021: the patient reports feeling well today. She is not doing as well with PT/ OT as she thought she would 1 day postop. Her pain is better controlled at this time and she is resting. She denies any fevers, chills, nausea, vomiting, abdominal pain, diarrhea, leg swelling, calf pain, chest pain, shortness of breath, sore throat, cough or any other symptoms at this time. Review of Systems Review of Systems: All systems reviewed & are unremarkable except as noted in HPI and below Exam Narrative: Exam Narrative: General: 76-year-old woman Lying in bed Taking a nap. easily arousable. Appears comfortable. In no acute distress. Skin: No jaundice or cyanosis. Good skin turgor. Neck: Full range of motion. Supple. Respiratory: Lungs are clear to auscultation bilaterally. No wheezing, rales or rhonchi. No bony chest wall tenderness. Cardiovascular: The heart has a regular rate and rhythm without murmur. Lower extremities: Hip was not evaluated and was left to the orthopedic surgeon. No lower extremity edema. Distal pulses are easily palpated. No calf tenderness to palpation. Gastrointestinal: The abdomen is soft, nontender and nondistended with active bowel sounds. Psychiatric: Lucid and oriented. Memory intact. Neurologic: No focal deficits. Speech is clear. No facial drooping. Objective Data Vital Signs Vital Signs: Vital Signs - 24 hr 02/24/21 16:38 02/24/21 17:56 02/24/21 19:31 Temperature 97.6 F 98.8 F Pulse Rate 84 84 Respiratory Rate 16 17 Blood Pressure 128/59 L 132/55 L Pulse Oximetry 93 99 99 02/24/21 22:00 02/25/21 02:00 02/25/21 05:30 Temperature 98.6 F 99.0 F 97.9 F Pulse Rate 72 80 81 Respiratory Rate 16 16 18 Blood Pressure 106/45 L 122/45 L 124/43 L Pulse Oximetry 94 94 94 02/25/21 08:51 07/07/21 09:56 Temperature 98.3 F Pulse Rate 74 Respiratory Rate 18 18 Blood Pressure 102/47 L Pulse Oximetry 95 97
[2021-02-25] MEDS: MECLIZINE HCL 25 MG TABLET PO (21:26)
[2021-02-25] MEDS: MELATONIN 3 MG TABLET PO (21:26)
[2021-02-26] MEDS: HYDROcodone/acetaminophen (*CRX) 7.5-325 MG TABLET 1 TAB PO ×5 (04:03→21:32)
[2021-02-26 05:45] VITALS: BP 130/48; PULSE 91; RESP 20; TEMP 36.2; O2SAT 92
--- NOTE | 2021-02-26 07:26 | PM.PNORT ---
Progress Note: A&P Assessment and Plan (1) Hip arthritis: Onset Date: 02/24/21 Code(s): M16.10 - Unilateral primary osteoarthritis, unspecified hip Status: Acute Assessment and Plan: postoperative day 2 right total hip arthroplasty. Patient with pain control issues last night. Confusion about ordering pain medication as needed. Feels better this morning after recent dose. Still without a bowel movement postoperative. Progressing well with PT / OT when pain controlled. Planned closer evaluation of pain level today. Stool softener with observation. Patient would like to return home with family upon discharge. We will see how she does today but most likely plan on discharge tomorrow. Subjective Subjective Date/Time Seen: 02/26/21 07:26 Post Op day: 2 Principal diagnosis: Right hip arthritis Interval history: Awake, difficult sleep last night due to pain rt hip. Tolerating diet. No bm yet. Exam Const: General: healthy appearing; No in distress or confusion Orientation/consciousness: patient oriented x3 and No confusion HENMT: Head: normal to inspection, normocephalic and atraumatic Eyes: Conjunctivae: conjunctivae normal Sclera: sclerae normal Resp: Effort & Inspection: normal respiratory effort and no audible wheezes Neuro: General: patient oriented x3 and No confusion Extrem: Right lower extremity: hip/thigh ( Incision clean and dry, muscles soft, mild swelling) and foot Details: toes with normal ROM, vascular exam Details: dorsalis pedis pulse present and normal capillary refill and motor-sensory exam Details: light-touch normal Location: in all toes Psych: Affect: normal affect Objective Data Vital Signs Vital Signs: Vital Signs - 24 hr 02/25/21 08:51 02/25/21 09:56 02/25/21 14:00 Temperature 98.3 F 98.7 F Pulse Rate 74 75 Respiratory Rate 18 18 18 Blood Pressure 102/47 L 105/46 L Pulse Oximetry 95 97 98 02/25/21 18:00 02/25/21 20:33 02/26/21 05:45 Temperature 98.4 F 97.8 F 97.1 F L Pulse Rate 89 73 91 Respiratory Rate 18 18 20 Blood Pressure 112/46 L 131/49 L 130/48 L Pulse Oximetry 94 97 92 Intake/Output Intake/Output: Intake & Output 02/23/21 02/24/21 02/25/21 02/26/21 23:59 23:59 23:59 23:59 Intake Total 1340 1410 390 Output Total 600 700 500 Balance 740 710 -110 Meds/Results Medications: Active Medications Generic Name Dose Route Start Last Admin Trade Name Freq PRN Reason Stop Dose Admin Acetaminophen 500 mg 02/24/21 12:11 Acetaminophen 500 Mg Tablet PO DAILY PRN Pain Hydrocodone Bitart/Acetaminophen 1 tab 02/24/21 12:11 02/26/21 04:03 Hydrocodone/Acetaminophen (*Crx) 7.5-325 Mg Tablet PO 1 tab Q3H PRN Administration Pain Rated 4-6 Al Hydrox/Mg Hydrox/Simethicone 30 ml 02/24/21 12:11 Mag Hydrox/Al Hydrox/Simeth 30 Ml Udc PO Q6H PRN Indigestion Aspirin 325 mg 02/24/21 21:00 02/25/21 21:00 Aspirin 325 Mg Enteric Tablet PO 325 mg Q12HR LEXIE Administration Celecoxib 200 mg 02/25/21 09:00 02/25/21 08:51 Celecoxib 200 Mg Capsule PO 200 mg DAILY LEXIE Administration Diazepam 5 mg 02/24/21 12:11 02/25/21 10:36 Diazepam (*Crx) 5 Mg Tablet PO 5 mg Q6H PRN Administration Anxiety/Muscle Spasm Docusate Sodium 100 mg 02/24/21 17:00 02/25/21 16:58 Docusate Sodium 100 Mg Capsule PO 100 mg BID LEXIE Administration Famotidine 20 mg 02/24/21 21:00 02/25/21 21:00 Famotidine 20 Mg Tablet PO 20 mg Q12HR LEXIE Administration Hydroxyzine HCl 50 mg 02/24/21 12:11 Hydroxyzine Hcl 25 Mg Tablet PO Q4H PRN Itching Magnesium Hydroxide 30 ml 02/24/21 12:11 Magnesium Hydroxide Susp 30 Ml Udc PO BID PRN Constipation Meclizine HCl 25 mg 02/24/21 21:00 02/25/21 21:26 Meclizine Hcl 25 Mg Tablet PO 25 mg HS LEXIE Administration Melatonin 3 mg 02/24/21 21:00 02/25/21 21:26 Melatonin 3 Mg Tablet PO 3 mg HS LEXIE Ad
[2021-02-26] MEDS: CELECOXIB 200 MG CAPSULE PO (08:09)
[2021-02-26] MEDS: OPTI-GEN TAB 1 TABLET PO (08:09)
[2021-02-26] MEDS: ASPIRIN 325 MG ENTERIC TABLET PO ×2 (08:09→21:34)
[2021-02-26] MEDS: FAMOTIDINE 20 MG TABLET PO ×2 (08:09→21:33)
[2021-02-26] MEDS: ZINC SULFATE 220 MG CAPSULE PO (08:09)
[2021-02-26] MEDS: DOCUSATE SODIUM 100 MG CAPSULE PO ×2 (08:10→18:01)
[2021-02-26 09:16] VITALS: BP 119/54; PULSE 87; RESP 18; TEMP 36.4; O2SAT 95
[2021-02-26 14:00] VITALS: BP 115/55; PULSE 80; RESP 18; TEMP 36.8; O2SAT 96
[2021-02-26 18:00] VITALS: BP 114/48; PULSE 80; RESP 16; TEMP 36.4; O2SAT 96
[2021-02-26 20:23] VITALS: BP 120/47; PULSE 83; RESP 20; TEMP 37; O2SAT 94
[2021-02-26] MEDS: MECLIZINE HCL 25 MG TABLET PO (21:33)
[2021-02-26] MEDS: MELATONIN 3 MG TABLET PO (21:33)
[2021-02-27] MEDS: HYDROcodone/acetaminophen (*CRX) 7.5-325 MG TABLET 1 TAB PO ×3 (02:03→13:23)
[2021-02-27 05:17] VITALS: BP 129/56; PULSE 76; RESP 18; TEMP 36.6; O2SAT 96
[2021-02-27] MEDS: FAMOTIDINE 20 MG TABLET PO (08:05)
[2021-02-27] MEDS: CELECOXIB 200 MG CAPSULE PO (08:05)
[2021-02-27] MEDS: ASPIRIN 325 MG ENTERIC TABLET PO (08:05)
[2021-02-27] MEDS: ZINC SULFATE 220 MG CAPSULE PO (08:06)
[2021-02-27] MEDS: OPTI-GEN TAB 1 TABLET PO (08:06)
[2021-02-27] MEDS: MAGNESIUM HYDROXIDE SUSP 30 ML UDC PO (08:09)
[2021-02-27] MEDS: DOCUSATE SODIUM 100 MG CAPSULE PO (08:09)
--- NOTE | 2021-02-27 08:31 | PM.PNORT ---
Progress Note: A&P Assessment and Plan (1) S/P total hip arthroplasty: Qualifiers: Laterality: right Qualified Code(s): Z96.641 - Presence of right artificial hip joint Code(s): Z96.649 - Presence of unspecified artificial hip joint Status: Acute Assessment and Plan: POD #3: Right REZA Continue PT/OT. WBAT. Walker. HIGH FALL RISK. Continue pain control. Ice lateral hip. DVT prophylaxis. SCDs. Incentive Spirometry. Dressing to be changed today. Dispo: Home with Home Health today pending progress with PT/OT. (2) Constipation due to pain medication: Code(s): K59.03 - Drug induced constipation Status: Acute Assessment and Plan: Continue bowel regimen BID. MOM given this AM. Increase water intake/fiber. Add Miralax daily. Subjective Subjective Date/Time Seen: 02/27/ 08:31 POD #2: Right REZA No new complaints. Pain control improved. Hopeful for discharge home today. Review of Systems Review of Systems: All systems reviewed & are unremarkable except as noted in HPI and below Constitutional: Constitutional: Denies chills, Denies fever(s), Denies headache(s), Denies lethargy and Reports weakness ENT: Denies headache(s) Cardiovascular: Cardiovascular: Denies chest pain, Denies diaphoresis, Denies lightheadedness, Denies palpitations, Denies dyspnea and Denies dyspnea on exertion Respiratory: Respiratory: Denies cough, Denies dyspnea and Denies dyspnea on exertion Gastrointestinal: Gastrointestinal: Reports constipation, Denies diarrhea, Denies nausea and Denies vomiting Genitourinary: Genitourinary: Reports urinary frequency, Denies dysuria and Denies urinary hesitancy Musculoskeletal: Musculoskeletal: Reports joint swelling (Right Hip ) and Reports limited range of motion (Right Hip due to recent surgery ) Neurologic: Denies headache(s) and Reports weakness Endocrine: Endocrine: Denies palpitations Exam Const: General: comfortable and no acute distress Resp: Effort & Inspection: normal respiratory effort Cardio: Rate: regular rate Rhythm: regular rhythm GI: Inspection: non-distended GI Palp: Yes Soft to palpation, No Tenderness to palpation present (GI) and No Guarding due to palpation present (GI) Skin: General skin exam: normal color Other: Incision right hip c/d/i. Surrounding tissue without redness/warmth. Mild swelling consistent with recent surgery. No drainage. Neuro: Cognition (Neuro): normal cognition Speech: normal speech Other: Strength RLE decreased due to recent surgery. +ankle dorsiflexion/plantarflexion. NV intact. Moves toes. Sensaiton intact to light touch. Extrem: Right lower extremity: normal to inspection, normal capillary refill and hip/thigh Details: tenderness Location: of the hip (Thigh soft ) Location: laterally and anteriorly, swelling Location: at the hip, abnormal ROM (limited consistent with recent surgery ) and other (Incision c/d/i. ); no deformity and no unusual warmth Objective Data Vital Signs Vital Signs: Vital Signs - 24 hr 02/26/21 09:16 02/26/21 14:00 02/26/21 18:00 Temperature 36.4 C 36.8 C 36.4 C Pulse Rate 87 80 80 Respiratory Rate 18 18 16 Blood Pressure 119/54 L 115/55 L 114/48 L Pulse Oximetry 95 96 96 02/26/21 20:23 02/27/21 05:17 Temperature 37.0 C 36.6 C Pulse Rate 83 76 Respiratory Rate 20 18 Blood Pressure 120/47 L 129/56 L Pulse Oximetry 94 96 Intake/Output Intake/Output: Intake & Output 02/24/21 02/25/21 02/26/21 02/27/21 23:59 23:59 23:59 23:59 Intake Total 1340 1410 1370 190 Output Total 655 592 0764 300 Balance 740 710 370 -110 Meds/Results Medications: Active Medications Generic Name Dose Route Start Last Admin Trade Name Freq PRN Reason Stop Dose Admin Acetaminophen 500 mg 02/24/21 12:11 Acetaminophen 500 Mg Tablet PO DAILY PRN Pain Hydrocodone Bitart/Acetaminophen 1 tab 02/24/21 12:11 02/27/21 08:06 Hydrocodone/Acetaminophen (*C
[2021-02-27] MEDS: polyethylene glycoL 3350 17 GM POWD.PACK PO (11:44)
--- NOTE | 2021-02-27 14:36 | PM.DS ---
DS: Admitting Diagnosis Admitting Diagnosis Admitting Diagnosis: Right hip DJD DS: Discharge Diagnosis Discharge Diagnosis (1) S/P total hip arthroplasty: Qualifiers: Laterality: right Qualified Code(s): Z96.641 - Presence of right artificial hip joint Code(s): Z96.649 - Presence of unspecified artificial hip joint Status: Acute Assessment and Plan: POD #3: Right REZA Continue PT/OT. WBAT. Walker. HIGH FALL RISK. Continue pain control. Ice lateral hip. DVT prophylaxis. SCDs. Incentive Spirometry. Dressing to be changed today. Dispo: Home with Home Health today pending progress with PT/OT. (2) Constipation due to pain medication: Code(s): K59.03 - Drug induced constipation Status: Acute Assessment and Plan: Continue bowel regimen BID. MOM given this AM. Increase water intake/fiber. Add Miralax daily. DS: Summary Hospital Course Reason for hospitalization: Right total hip arthroplasty Hospital Course: 76-year-old female admitted status post right total hip arthroplasty for postoperative medical care, pain control and mobilization with physical and occupational therapy. Patient had slow progress with PT and OT on postop day 1 and postop day 2. She had difficulty with pain control on both postop day 1 and postop day 2. her labs and vitals remained stable throughout. Her pain was well controlled on the morning of postop day 3 and she was cleared by Physical and Occupational therapy to be discharged home with home health at this time. She will be discharged home with home health and will follow up in the outpatient setting in 3 weeks. She will be discharged home on DVT prophylaxis. Status at Discharge Functional status at discharge: uses cane/walker Overall status at discharge: patient is progressing back to baseline Time Spent with Patient Time attestation: Total time spent providing and/or coordinating discharge services: Exam Const: General: comfortable and no acute distress Resp: Effort & Inspection: normal respiratory effort Cardio: Rate: regular rate Rhythm: regular rhythm GI: Inspection: non-distended Skin: General skin exam: normal color Other: Incision right hip c/d/i. Surrounding tissue without redness/warmth. Mild swelling consistent with recent surgery. No drainage. Neuro: Cognition (Neuro): normal cognition Speech: normal speech Other: Strength RLE decreased due to recent surgery. +ankle dorsiflexion/plantarflexion. NV intact. Moves toes. Sensaiton intact to light touch. Extrem: Right lower extremity: normal to inspection, normal capillary refill and hip/thigh Details: tenderness Location: of the hip (Thigh soft ) Location: laterally and anteriorly, swelling Location: at the hip, abnormal ROM (limited consistent with recent surgery ) and other (Incision c/d/i. ); no deformity and no unusual warmth Discharge Plan Discharge Attending physician on discharge: Piotr Manzano Consulting providers: Nanette Gomes Discharging Clinician: Ct Hodges Anticipated Discharge Date/Time: 02/27/21 12:00 Patient Disposition: Home Health Service Activity: may shower, no driving and follow weight bearing status Diet: as tolerated Wound Care Instructions: follow printed instructions Discharge Instructions: Per Care Coordniation, patient to discharge with [facility] ( ) for PT/OT and long term services. Please fax discharge instructions and medication sheets to . Post Op Total Hip Replacement Instructions Dr. Piotr Manzano [phone] ? Your dressing will be changed prior to your discharge. You will be sent home with one additional dressing to be changed in 5 days by the home health RN. Your incision was closed with dermabond, allow the dermabond to fall off naturally and do not disrupt incision healing. ? You may shower with your dressing but do not submerge in a bath tub. ?
== END 2021-02-27 13:30 | disposition home health service (06) ==
LOC: ANH2MED 14:02
PROVIDERS: Admitting Provider Orthopaedic Surgery; PCP Family Medicine; Visit Provider Orthopaedic Surgery
PROC: (CPT 27130; principal; 2021-02-24 07:30)
DX: M16.0 Bilateral primary osteoarthritis of hip (principal); K59.03 Drug induced constipation; Z87.891 Personal history of nicotine dependence
CPT/HCPCS: 27130; 36415; 73501; 80048; 85014; 85018; 85025; 97110; 97116; 97161; 97165; 97530; 97535; A9270; C1776; G0378; J0171; J0690; J1100; J1170; J2175; J2250; J2270; J2370; J2405; J2704; J2710; J2795; J3010; J7120

== ENCOUNTER 2021-03-10 20:06 | Outpatient (NON) | payer MEDICARE, SELFPAY ==
[2021-03-10 20:18] LABS: Hematocrit 29.2 % (35.0-42.0); Hemoglobin 9.1 g/dL (11.7-13.8); Immature Platelet Fraction Pct 1.1 % (1.0-7.0); Mean Corpuscular HGB Conc 31.2 g/dL (32.0-36.0); Mean Corpuscular Hemoglobin 31.1 pg (27.0-31.0); Mean Corpuscular Volume 99.7 fL (78.0-102.0); Mean Platelet Volume 8.8 fl (9.2-11.8); Platelet Count Result 827 K/mm3 (150-420); Red Blood Count 2.93 M/mm3 (4.20-5.40); Red Cell Distribution Width 14.8 % (11.6-14.4)
[2021-03-10 20:26] LABS: Alanine Aminotransferase 26 U/L (14-59); Albumin Level 3.2 g/dL (3.4-5.0); Alkaline Phosphatase 165 U/L (46-116); Anion Gap 10 mmol/L (8-16); Aspartate Amino Transferase 20 U/L (15-37); Bilirubin,Total 0.3 mg/dL (0.00-1.00); Blood Urea Nitrogen 18 mg/dL (7-18); Carbon Dioxide 27 mmol/L (21-32); Chloride 102 mmol/L (98-108); Estimated Glomerular Filt Rate > 60; Glucose 107 mg/dL (70-99); Magnesium 1.9 mg/dL (1.8-2.4); Osmolality Calculated 289 mOsm/kg (285-295); Potassium 4.4 mmol/L (3.5-5.1); Sodium 139 mmol/L (136-145); Total Protein 6.6 g/dL (6.4-8.2)
[2021-03-10 20:45] LABS: Band Neutrophils Percent 0 % (0-6); Eosinophils Absolute Manual 0.28 K/mm3 (0.02-0.5); Eosinophils Percent Manual 2 % (1-6); Lymphocytes Absolute Manual 0.98 K/mm3 (1.1-4.5); Lymphocytes Percent Manual 7 % (18-44); Monocytes Absolute Manual 0.56 K/mm3 (0.1-0.90); Monocytes Percent Manual 4 % (3-9); Neutrophils Absolute Manual 12.18 K/mm3 (1.7-7.2); Neutrophils Percent Manual 87 % (46-73); Platelet Estimate Increased (Adequate); Total Cells Counted 100
== END 2021-03-10 20:07 | disposition home or self-care (01) ==
PROVIDERS: Nurse Practitioner Family; PCP Family Medicine; Visit Provider Family Medicine
DX: R11.2 Nausea with vomiting, unspecified (principal); R50.9 Fever, unspecified; R63.0 Anorexia
CPT/HCPCS: 36415; 80053; 83735; 85025; 85055

== ENCOUNTER 2021-03-11 12:03 | Emergency (ER) | payer MEDICARE, SELFPAY ==
--- NOTE | ~2021-03-11 | XR_ITS ---
EXAMINATION: XR abdomen obstructive series DATE: 03/11/2021 13:22 INDICATION: Nausea and vomiting TECHNIQUE: Upright and supine views of the abdomen were obtained. COMPARISON: None. FINDINGS: The abdomen is relatively gasless. No dilated loops of bowel are evident. There is no free intraperitoneal gas. Surgical clips project over the left upper quadrant. There is lumbar dextroscoli osis and severe spondylosis. Changes of right total hip arthroplasty are noted. There is advanced ost eoarthritis of the left hip. Phleboliths are present in the pelvis. IMPRESSION: 1. Nonspecific bowel gas pattern. Reviewed, dictated and finalized at location B.
--- NOTE | 2021-03-11 12:33 | ED.GIBLEED ---
HPI - GI Bleed General Chief complaint: GI Bleed Stated complaint: possible intestinal bleeding Time Seen by Provider: 03/11/21 12:33 Source: patient and family Mode of arrival: ambulatory Limitations: no limitations History of Present Illness HPI Narrative: Patient comes in after having total hip replacement on February 24. She had done well initially after discharge. The last few days she has had recurrent nausea, moderately severe, in spite of taking zofran and phenergan at home ongoing since her surgery, ongoing since surgery. Nausea has pretty well resolved though now, since she has stopped taking her narcotics, as she no longer is having enough pain she needs them. She has had a couple of dark stools at home, and the [employer] at the office is afraid she has a GI bleed. It should be noted that until recently she has been taking celebrex, ibuprofen, and aspirin all three at home, daily. No modifying factors. MD complaint: other (dark stools) Onset (ago): day(s) Pain Consistency: intermittent Severity: moderate Relieving factors: none Associated symptoms: nausea and vomiting Related Data Home Medications Medication Instructions Recorded Confirmed celecoxib 200 mg PO HS 03/11/21 03/11/21 hydrocodone-acetaminophen 1 tablet PO Q6-8H PRN 03/11/21 03/11/21 ondansetron 4 mg PO TID 03/11/21 03/11/21 promethazine 25 mg tablet 25 mg PO Q4-6H PRN tablet 03/11/21 03/11/21 Allergies Allergy/AdvReac Type Severity Reaction Status Date / Time No Known Allergies Allergy Verified 03/11/21 11:36 Review of Systems Constitutional: Constitutional: Reports no additional constitutional complaints Eyes: Eyes: Reports no additional eye complaints ENT: Reports system reviewed and no additional complaints, except as documented Cardiovascular: Cardiovascular: Reports no additional cardiovascular complaints Respiratory: Respiratory: Reports no additional respiratory complaints Gastrointestinal: Gastrointestinal: Reports no additional gastrointestinal complaints Genitourinary: Genitourinary: Reports no additional female genitourinary complaints Musculoskeletal: Musculoskeletal: Reports no additional musculoskeletal complaints Integumentary/Breasts: Skin/Breast: Reports system reviewed and no additional complaints, except as docu Neurologic: Reports system reviewed and no additional complaints, except as documented Psychiatric: Psychiatric: Reports no additional psychiatric complaints Endocrine: Endocrine: Reports no additional endocrine complaints Hematologic/Lymphatic: Hematologic/Lymphatic: Reports no additional hematologic/lymphatic complaints Allergic/Immunologic: Allergic/Immunologic: Reports no additional allergic/immunologic complaints PMFSH Past Medical History Medical History Constipation due to pain medication Hip arthritis (02/24/21) Obesity Other spondylosis with radiculopathy, lumbar region Surgical History Surgical History 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, noncancerous Hx of total hysterectomy 1984- Abnormal uterine bleeding and uterine fibroids found S/P total hip arthroplasty Family History Family History Father Asthma Mother Scleroderma Social History Social History Years smoked: 50 Smoking status: Former smoker Alcohol intake: current Drinks per week: 1 Substance use: never Substance use type: does not use Gender identity (if verbalized by the patient): Female Spiritual care concerns: No Exam Const: General: no acute distress and alert Orientation/consciousness: patient oriented x3 HENMT: Head: normal to inspection Ears: external ears normal and TM's normal bilaterally General nose exam: Normal external nose present and Normal nares present Mouth:
[2021-03-11 12:35] VITALS: BP 123/62; PULSE 85; RESP 20; TEMP 36.6; O2SAT 96
[2021-03-11 12:50] VITALS: BP 134/67; PULSE 88; RESP 20; O2SAT 98
[2021-03-11 13:06] LABS: Occult Blood Positive (Negative)
[2021-03-11 13:14] LABS: Basophils Absolute Auto 0.05 K/mm3 (0.00-0.10); Basophils Percent Auto 0.3 % (0.0-1.0); Eosinophils Absolute Auto 0.07 K/mm3 (0.02-0.50); Eosinophils Percent Auto 0.5 % (1.0-6.0); Hematocrit 26.8 % (35.0-42.0); Hemoglobin 8.5 g/dL (11.7-13.8); Immature Granulocyte Absolute 0.11 K/mm3 (0.00-0.00); Immature Granulocyte Percent A 0.7 % (0.0-0.0); Lymphocytes Absolute Auto 1.31 K/mm3 (1.10-4.50); Lymphocytes Percent Auto 8.8 % (18.0-42.0); Mean Corpuscular HGB Conc 31.7 g/dL (32.0-36.0); Mean Corpuscular Hemoglobin 31.7 pg (27.0-31.0); Mean Platelet Volume 8.4 fl (9.2-11.8); Monocytes Absolute Auto 1.03 K/mm3 (0.10-0.90); Monocytes Percent Auto 6.9 % (2.0-11.0); Neutrophils Absolute Auto 12.3 K/mm3 (1.7-7.2); Neutrophils Percent Auto 82.8 % (50.0-70.0); Platelet Count Result 688 K/mm3 (150-420); Red Blood Count 2.68 M/mm3 (4.20-5.40); Red Cell Distribution Width 15.1 % (11.6-14.4); White Blood Count 14.9 K/mm3 (4.8-10.8)
[2021-03-11 13:24] LABS: Lipase 82 U/L (73-393)
[2021-03-11 13:26] LABS: Alanine Aminotransferase 22 U/L (14-59); Albumin Level 2.9 g/dL (3.4-5.0); Alkaline Phosphatase 151 U/L (46-116); Anion Gap 13 mmol/L (8-16); Aspartate Amino Transferase 18 U/L (15-37); Bilirubin,Total 0.3 mg/dL (0.00-1.00); Blood Urea Nitrogen 20 mg/dL (7-18); Calcium 8.7 mg/dL (8.5-10.1); Carbon Dioxide 27 mmol/L (21-32); Chloride 102 mmol/L (98-108); Estimated CRCL calculation 38 ml/min; Estimated Glomerular Filt Rate > 60; Glucose 107 mg/dL (70-99); INR 1.2; Osmolality Calculated 296 mOsm/kg (285-295); Partial Thromboplastin Time 22.4 SEC (23.90-30.70); Prothrombin Time 12.3 Seconds (9.50-12.10); Sodium 142 mmol/L (136-145); Total Protein 6.5 g/dL (6.4-8.2)
[2021-03-11 13:43] LABS: Appearance Urine Clear (Clear); Bilirubin Urine 1+ (Negative); Color Urine Light Yellow (Yellow); Glucose Urine UA Negative (Negative); Ketones Urine Trace (Negative); Leukocyte Esterase Ur Trace LEU/UL (Negative); Nitrate Urine Negative (Negative); Protein Urine Negative (Negative); Urobilinogen Urine 0.2 mg/dL (0.2-1.0)
[2021-03-11 13:48] LABS: Add Urine Microscopic? YES; Bacteria Urine Trace /hpf; Blood Urine Trace-lysed (Negative); Mucus Urine Moderate /lpf; Squamous Epithelial Cell Urine Few /hpf (Few)
[2021-03-11 14:00] VITALS: BP 147/72; PULSE 89; RESP 20; O2SAT 97
[2021-03-11] MEDS: ONDANSETRON HCL ODT 4 MG TABLET PO (14:36)
[2021-03-11 14:39] VITALS: BP 145/68; PULSE 87; RESP 20; O2SAT 96
== END 2021-03-11 14:41 | disposition home or self-care (01) ==
PROVIDERS: Emergency Provider Emergency Medicine; PCP Family Medicine
DX: K92.2 Gastrointestinal hemorrhage, unspecified (principal); R11.2 Nausea with vomiting, unspecified
CPT/HCPCS: 36415; 74019; 80053; 81001; 82272; 83690; 85025; 85610; 85730; 99283; A9270

== ENCOUNTER 2021-03-13 10:30 | Outpatient (NON) | payer MEDICARE, SELFPAY ==
[2021-03-13 10:42] LABS: Basophils Absolute Auto 0.05 K/mm3 (0.00-0.10); Basophils Percent Auto 0.3 % (0.0-1.0); Eosinophils Absolute Auto 0.07 K/mm3 (0.02-0.50); Eosinophils Percent Auto 0.5 % (1.0-6.0); Hematocrit 25.4 % (35.0-42.0); Hemoglobin 8.3 g/dL (11.7-13.8); Immature Granulocyte Absolute 0.12 K/mm3 (0.00-0.00); Immature Granulocyte Percent A 0.8 % (0.0-0.0); Immature Platelet Fraction Pct 0.9 % (1.0-7.0); Lymphocytes Absolute Auto 1.14 K/mm3 (1.10-4.50); Lymphocytes Percent Auto 7.9 % (18.0-42.0); Mean Corpuscular HGB Conc 32.7 g/dL (32.0-36.0); Mean Corpuscular Hemoglobin 32.4 pg (27.0-31.0); Mean Corpuscular Volume 99.2 fL (78.0-102.0); Mean Platelet Volume 8.6 fl (9.2-11.8); Monocytes Absolute Auto 0.84 K/mm3 (0.10-0.90); Monocytes Percent Auto 5.8 % (2.0-11.0); Neutrophils Absolute Auto 12.2 K/mm3 (1.7-7.2); Neutrophils Percent Auto 84.7 % (50.0-70.0); Platelet Count Result 684 K/mm3 (150-420); Red Blood Count 2.56 M/mm3 (4.20-5.40); Red Cell Distribution Width 15.1 % (11.6-14.4); White Blood Count 14.4 K/mm3 (4.8-10.8)
== END 2021-03-13 10:31 | disposition home or self-care (01) ==
LOC: CHSLAB 10:31
PROVIDERS: Visit Provider Nurse Practitioner Family
DX: Z96.641 Presence of right artificial hip joint (principal)
CPT/HCPCS: 36415; 85025; 85055

== ENCOUNTER 2021-03-17 15:41 | Outpatient (CLI) | payer MEDICARE, SELFPAY ==
[2021-03-17 16:11] LABS: Hematocrit 25.4 % (37.0-47.0); Hemoglobin 7.9 g/dL (12.0-15.0)
== END 2021-03-17 15:42 | disposition home or self-care (01) ==
LOC: ANHLAB 15:43
PROVIDERS: PCP Family Medicine; Visit Provider Nurse Practitioner Family
DX: K92.1 Melena (principal)
CPT/HCPCS: 36415; 85014; 85018

== ENCOUNTER 2021-03-31 01:41 | Day surgery (SDC) | payer MEDICARE, SELFPAY ==
[2021-03-19 13:13] VITALS: BMI 24.5
[2021-03-31 11:19] VITALS: BP 124/56; PULSE 84; RESP 16; TEMP 36.7; O2SAT 98; BMI 23.3
--- NOTE | 2021-03-31 11:34 | WPDGICN ---
Assessment and Plan Assessment and plan (1) Fecal occult blood test positive: Code(s): R19.5 - Other fecal abnormalities Status: Acute Assessment and Plan: Patient found to have occult blood in stool. With progressive anemia suspect she may have had some internal bleeding. Plan is for EGD. If this is not fruitful then colonoscopy will be arranged. Patient initially did not wish to procede with this because of her nausea. (2) Anemia: Code(s): D64.9 - Anemia, unspecified Status: Acute Assessment and Plan: Anemia is likely multifactorial after recent hip replacement surgery. Given her occult blood loss we are certainly concerned about GI blood loss. Plan to initially evaluate EGD and she may additionally require additional studies pending results. (3) Nausea: Code(s): R11.0 - Nausea Status: Acute Assessment and Plan: Patient's initial complaint of nausea has persisted she finally notices improvement after 2-3 week trial of omeprazole. It is uncertain if this is incidental. Plan to evaluate with EGD continue omeprazole for the immediate future. (4) History of total left hip arthroplasty: Code(s): Z96.642 - Presence of left artificial hip joint Status: Acute GI Consult Note Consult date/time: 03/31/21 11:34 HPI: Ally Fulton is a 76 year old female presents for EGD. Patient has a history of recent hip replacement on the right. She has underlying arthritis in both hips. After hip replacement she began to have a episodes of nausea. She underwent CBC and was found to be anemic as well. Patient ultimately was identified as having Hemoccult-positive stools. Because of the nausea an EGD was requested. Colonoscopy was also suggested but refused by the patient because of her current nausea. Patient has been treated empirically with omeprazole over the last 2-3 weeks. She states that finally over the last 2 days nausea has abated. She denies any obvious signs of GI blood loss. Her bowel movements appear normal. She has had no other bleeding. No nose bleeds bruises etc.. Family history is noncontributory. 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, noncancerous Hx of total hysterectomy 1984- Abnormal uterine bleeding and uterine fibroids found S/P total hip arthroplasty Family History Family History Father Asthma Mother Scleroderma Sibling Breast cancer Stomach tumor (benign) Social History Social History Years smoked: 50 Alcohol intake: current Drinks per week: 1 Alcohol use details: socially Substance use: never Substance use type: does not use Living arrangements: with family Gender identity (if verbalized by the patient): Female Spiritual care concerns: No Agree to blood products: Yes Meds Home Medications and Allergies Home Medications Medication Instructions Recorded Confirmed Type omeprazole 40 mg PO DAILY #30 cap 03/11/21 03/20/21 Rx ondansetron 4 mg PO TID PRN 03/11/21 03/20/21 History ascorbate calcium (vitamin C) 500 500 mg PO DAILY 03/17/21 03/20/21 History mg tablet fluticasone propionate 50 1 spray INTRANASAL DAILY PRN 03/17/21 03/20/21 History mcg/actuation nasal spray,suspension folic acid 0.8 mg capsule 0.8 mg PO DAILY 03/17/21 03/20/21 History ferrous sulfate 325 mg PO DAILY 03/19/21 03/20/21 History Allergies
--- NOTE | 2021-03-31 11:35 | WPDANESEPPF ---
Anes - Initial Pre Proc Eval Procedure: Operation Date: 03/31/21 12:30 Proposed Procedures p Esophagogastroduodenoscopy - Dexter Melendez MD Date/Time: 03/31/21 11:35 Surgeon: Dexter Melendez MD Pre Op Diagnosis: occult GI bleed, anemia Patient Data Age: 76 Gender: F Height: 1.55 m Weight: 56.2 kg Last Vital Signs Temp 36.7 C 03/31/21 11:19 Pulse 84 03/31/21 11:19 Resp 16 03/31/21 11:19 BP 124/56 L 03/31/21 11:19 Pulse Ox 98 03/31/21 11:19 Allergies Allergy/AdvReac Type Severity Reaction Status Date / Time No Known Allergies Allergy Verified 03/31/21 11:18 Home Medications Medication Instructions Recorded Confirmed Type omeprazole 40 mg PO DAILY #30 cap 03/11/21 03/20/21 Rx ondansetron 4 mg PO TID PRN 03/11/21 03/20/21 History ascorbate calcium (vitamin C) 500 500 mg PO DAILY 03/17/21 03/20/21 History mg tablet fluticasone propionate 50 1 spray INTRANASAL DAILY PRN 03/17/21 03/20/21 History mcg/actuation nasal spray,suspension folic acid 0.8 mg capsule 0.8 mg PO DAILY 03/17/21 03/20/21 History ferrous sulfate 325 mg PO DAILY 03/19/21 03/20/21 History Patient hx anesthesia problems: none Family hx anesthesia problems: none PMFSH Past Medical History Medical History Anemia Constipation due to pain medication Hip arthritis (02/24/21) Obesity Other spondylosis with radiculopathy, lumbar region Surgical History Surgical History 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, noncancerous Hx of total hysterectomy 1984- Abnormal uterine bleeding and uterine fibroids found S/P total hip arthroplasty Family History Family History Father Asthma Mother Scleroderma Sibling Breast cancer Stomach tumor (benign) Social History Social History Years smoked: 50 Alcohol intake: current Drinks per week: 1 Alcohol use details: socially Substance use: never Substance use type: does not use Living arrangements: with family Gender identity (if verbalized by the patient): Female Spiritual care concerns: No Agree to blood products: Yes Anes - Eval Final PreProcedure Day of Procedure 03/31/21 11:35 Patient weight: normal Heart: regular rate and rhythm Lungs: clear to auscultation Airway: Mallampati scale class II Neurological: alert and oriented Last oral intake: >/= 8 hours ASA classification: II Emergent: no Anesthetic plan: proceed Anesthesia type and monitoring: general GIVS and standard monitoring Informed Consent: The patient's anesthetic plan and its attendant risks and benefits were discussed with the patient/family/POA. Questions were solicited and answers provided to the satisfaction of the patient/family/POA.
[2021-03-31] MEDS: LACTATED RINGERS 1,000 ML 150 ML IV CONT (11:37)
[2021-03-31] MEDS: AMPICILLIN 2 GM/NS 100 ML 2 GM/100 ML BAG IVPB (11:40)
[2021-03-31 12:19] VITALS: BP 136/79; PULSE 78; RESP 23; O2SAT 97
[2021-03-31 12:29] VITALS: BP 153/79; PULSE 79; RESP 17; O2SAT 95
[2021-03-31 12:39] VITALS: BP 152/77; PULSE 77; RESP 18; O2SAT 98
== END 2021-03-31 13:00 | disposition home or self-care (01) ==
PROVIDERS: PCP Family Medicine; Visit Provider Internal Medicine Gastroenterology
PROC: 0DJ08ZZ Inspection of Upper Intestinal Tract, Via Natural or Artificial Opening Endoscopic (ICD-10-PCS; CPT 43235; principal; 2021-03-31 12:30)
DX: R19.5 Other fecal abnormalities (principal); D64.9 Anemia, unspecified; R11.0 Nausea
CPT/HCPCS: 43239; 87081; J0290; J2704; J7120

== ENCOUNTER 2021-04-06 17:28 | Outpatient (NON) | payer MEDICARE, SELFPAY ==
[2021-04-06 18:27] LABS: Basophils Absolute Auto 0.06 K/mm3 (0.00-0.10); Basophils Percent Auto 0.8 % (0.0-1.0); Eosinophils Absolute Auto 0.13 K/mm3 (0.02-0.50); Eosinophils Percent Auto 1.7 % (1.0-6.0); Hematocrit 34.7 % (35.0-42.0); Hemoglobin 10.7 g/dL (11.7-13.8); Immature Granulocyte Absolute 0.02 K/mm3 (0.00-0.00); Immature Granulocyte Percent A 0.3 % (0.0-0.0); Lymphocytes Absolute Auto 1.75 K/mm3 (1.10-4.50); Lymphocytes Percent Auto 22.7 % (18.0-42.0); Mean Corpuscular HGB Conc 30.8 g/dL (32.0-36.0); Mean Corpuscular Hemoglobin 31.3 pg (27.0-31.0); Mean Corpuscular Volume 101.5 fL (78.0-102.0); Mean Platelet Volume 9.1 fl (9.2-11.8); Monocytes Absolute Auto 0.78 K/mm3 (0.10-0.90); Monocytes Percent Auto 10.1 % (2.0-11.0); Neutrophils Percent Auto 64.4 % (50.0-70.0); Platelet Count Result 488 K/mm3 (150-420); Red Blood Count 3.42 M/mm3 (4.20-5.40); White Blood Count 7.7 K/mm3 (4.8-10.8)
== END 2021-04-06 17:29 | disposition home or self-care (01) ==
LOC: CHSLAB 17:31
PROVIDERS: PCP Family Medicine; Visit Provider Family Medicine
DX: D64.9 Anemia, unspecified (principal)
CPT/HCPCS: 36415; 85025

== ENCOUNTER 2021-04-10 04:51 | Day surgery (SDC) | payer MEDICARE, SELFPAY ==
[2021-04-03 14:58] VITALS: BMI 24.5
--- NOTE | 2021-04-10 07:53 | WPDANESEPPF ---
Anes - Initial Pre Proc Eval Procedure: Operation Date: 04/10/21 09:30 Proposed Procedures p Colonoscopy - Dexter Melendez MD Date/Time: 04/10/21 07:53 Surgeon: Dexter Melendez MD Pre Op Diagnosis: occult GI bleed, anemia Patient Data Age: 76 Gender: F Height: 1.55 m Weight: 59 kg Allergies Allergy/AdvReac Type Severity Reaction Status Date / Time No Known Allergies Allergy Verified 04/03/21 14:54 Home Medications Medication Instructions Recorded Confirmed Type ondansetron 4 mg PO TID PRN 03/11/21 04/03/21 History ascorbate calcium (vitamin C) 500 500 mg PO DAILY 03/17/21 04/03/21 History mg tablet fluticasone propionate 50 1 spray INTRANASAL DAILY PRN 03/17/21 04/03/21 History mcg/actuation nasal spray,suspension folic acid 0.8 mg capsule 0.8 mg PO DAILY 03/17/21 04/03/21 History ferrous sulfate 325 mg PO DAILY 03/19/21 04/03/21 History omeprazole 40 mg capsule,delayed 40 mg PO DAILY #30 cap 04/06/21 Rx release Patient hx anesthesia problems: none Family hx anesthesia problems: none PMFSH Past Medical History Medical History Anemia Constipation due to pain medication Hip arthritis (02/24/21) Obesity Other spondylosis with radiculopathy, lumbar region Surgical History Surgical History 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, noncancerous Hx of total hysterectomy 1984- Abnormal uterine bleeding and uterine fibroids found S/P total hip arthroplasty Family History Family History Father Asthma Mother Scleroderma Sibling Breast cancer Stomach tumor (benign) Social History Social History Years smoked: 50 Alcohol intake: current Drinks per week: 1 Alcohol use details: socially Substance use: never Substance use type: does not use Living arrangements: with family Gender identity (if verbalized by the patient): Female Spiritual care concerns: No Agree to blood products: Yes Anes - Eval Final PreProcedure Day of Procedure 04/10/21 07:53 Patient weight: normal Heart: regular rate and rhythm Lungs: clear to auscultation and normal air movement Airway: Mallampati scale class II Neurological: alert and oriented Last oral intake: >/= 8 hours ASA classification: II Emergent: no Anesthetic plan: proceed Anesthesia type and monitoring: general GIVS Informed Consent: The patient's anesthetic plan and its attendant risks and benefits were discussed with the patient/family/POA. Questions were solicited and answers provided to the satisfaction of the patient/family/POA.
[2021-04-10] MEDS: LACTATED RINGERS 1,000 ML 150 ML IV CONT (08:47)
[2021-04-10] MEDS: AMPICILLIN 2 GM/NS 100 ML 2 GM/100 ML BAG IVPB (08:47)
[2021-04-10 08:58] VITALS: BP 142/70; PULSE 75; RESP 20; TEMP 36.3; O2SAT 100; BMI 22.8
--- NOTE | 2021-04-10 09:06 | WPDHPUPDATE1 ---
History and Physical Update Update Date/Time: 04/10/21 09:06 History and Physical has been reviewed, including an updated exam of the patient. There are NO changes in the patient's condition. Risks, benefits, and alternatives have been discussed and questions answered. Patient agrees to proceed with procedure.
[2021-04-10 09:54] VITALS: BP 140/64; PULSE 72; RESP 24; O2SAT 98
[2021-04-10 10:04] VITALS: BP 161/83; PULSE 77; RESP 20; O2SAT 99
[2021-04-10 10:14] VITALS: BP 167/85; PULSE 70; RESP 22; O2SAT 100
== END 2021-04-10 10:31 | disposition home or self-care (01) ==
PROVIDERS: PCP Family Medicine; Visit Provider Internal Medicine Gastroenterology
PROC: 0DJD8ZZ Inspection of Lower Intestinal Tract, Via Natural or Artificial Opening Endoscopic (ICD-10-PCS; CPT 45378; principal; 2021-04-10 09:30)
DX: R19.5 Other fecal abnormalities (principal); K62.1 Rectal polyp; D64.9 Anemia, unspecified; R11.0 Nausea; Z96.641 Presence of right artificial hip joint; K59.03 Drug induced constipation; Z90.710 Acquired absence of both cervix and uterus; Z90.81 Acquired absence of spleen; K57.30 Diverticulosis of large intestine without perforation or abscess without bleeding
CPT/HCPCS: 45385; 88305; J0290; J2704; J7120

== ENCOUNTER 2021-05-05 08:07 | Outpatient (CLI) | payer MEDICARE, SELFPAY ==
--- NOTE | ~2021-05-05 | XR_ITS ---
EXAMINATION: XR hip RT min 2V EXAM DATE: 05/05/2021 08:34 INDICATION: Right hip pain, postoperative follow-up. TECHNIQUE: Frontal and frog lateral projections of the right hip. Comparison is made to prior examin ation from 03/20/2021.. FINDINGS: Right hip arthroplasty hardware in expected position. There are no acute fractures identif ied. The soft tissue is unremarkable. Advanced lower lumbar spondylosis. IMPRESSION: Intact right hip arthroplasty. Reviewed, dictated and finalized at location B.
== END 2021-05-05 08:08 | disposition home or self-care (01) ==
LOC: CHSIMG 08:10
PROVIDERS: PCP Family Medicine; Visit Provider Orthopaedic Surgery
DX: M25.551 Pain in right hip (principal)
CPT/HCPCS: 73502

== ENCOUNTER 2021-05-22 07:59 | Outpatient (CLI) | payer MEDICARE, SELFPAY ==
[2021-05-22 09:55] LABS: Basophils Absolute Auto 0.1 K/mm3 (0.0-0.1); Basophils Percent Auto 0.6 % (0.2-1.2); Eosinophils Absolute Auto 0.1 K/mm3 (0-0.3); Hematocrit 43.8 % (37.0-47.0); Hemoglobin 13.7 g/dL (12.0-15.0); Immature Granulocyte Absolute 0.02 K/mm3 (0.00-0.031); Immature Granulocyte Percent A 0.2 % (0-0.5); Lymphocytes Absolute Auto 1.29 K/mm3 (0.9-3.2); Lymphocytes Percent Auto 15.6 % (18.3-44.2); Mean Corpuscular HGB Conc 31.3 g/dl (32-36); Mean Corpuscular Hemoglobin 30.7 pg (26-34); Mean Corpuscular Volume 98.2 fl (80-100); Monocytes Absolute Auto 0.6 K/mm3 (0.1-0.6); Monocytes Percent Auto 7.4 % (2.6-8.5); Neutrophils Absolute Auto 6.2 K/mm3 (1.3-6.7); Neutrophils Percent Auto 75.2 % (45.5-73.1); Platelet Count Result 383 k/mm3 (150-375); Red Blood Count 4.46 M/mm3 (4.2-5.4); Red Cell Distribution Width 14.6 % (11.5-14.5); White Blood Count 8.3 K/mm3 (4.5-10.0)
[2021-05-22 10:06] LABS: Add Urine Microscopic? YES; Appearance Urine Clear (Clear); Bilirubin Urine Negative (Negative); Blood Urine Negative (Negative); Color Urine Yellow (Yellow); Glucose Urine UA Negative (Negative); Ketones Urine Negative (Negative); Leukocyte Esterase Ur 1+ LEU/UL (Negative); Mucus Urine Rare /lpf; Nitrate Urine Negative (Negative); Protein Urine Negative (Negative); RBC Urine 0-2 /hpf (0-2); Specific Grav Ur 1.016 (1.001-1.035); Squamous Epithelial Cell Urine Rare /hpf (Few); Urobilinogen Urine Negative mg/dL (<2.0)
[2021-05-22 10:12] LABS: INR 0.9; Prothrombin Time 12.5 Seconds (11.1-14.7)
[2021-05-22 10:14] LABS: Albumin Level 4.6 g/dL (3.5-5.1); Anion Gap 9 mmol/L (8-16); Blood Urea Nitrogen 28 mg/dL (7-17); Calcium 9.3 mg/dL (8.4-10.2); Carbon Dioxide 26 mmol/L (22-30); Chloride 106 mmol/L (98-107); Estimated Glomerular Filt Rate > 60; Glucose 101 mg/dL (65-110); Potassium 4.5 mmol/L (3.4-5.0); Sodium 141 mmol/L (137-145)
[2021-05-22 10:29] LABS: Urine Cotinine NEGATIVE
[2021-05-22 11:56] LABS: Hemoglobin A1C 5.2 % (<5.7)
== END 2021-05-22 08:00 | disposition home or self-care (01) ==
PROVIDERS: PCP Family Medicine; Visit Provider Orthopaedic Surgery
DX: M16.12 Unilateral primary osteoarthritis, left hip (principal); Z01.818 Encounter for other preprocedural examination
CPT/HCPCS: 80048; 80307; 81001; 82040; 83036; 85025; 85610; 85730; 86850; 86900; 86901; 87081

== ENCOUNTER 2021-06-03 15:24 | Observation (INO) | payer MEDICARE, SELFPAY ==
[2021-05-22 08:36] VITALS: BP 128/67; PULSE 61; RESP 18; TEMP 37.4; O2SAT 97; BMI 23.6
--- NOTE | 2021-06-01 15:39 | WPDANESEPPF ---
Anes - Initial Pre Proc Eval Procedure: Operation Date: 06/02/21 07:30 Proposed Procedures p Left Total Hip Arthroplasty - Piotr Manzano MD Date/Time: 06/01/21 15:39 Surgeon: Piotr Manzano MD Pre Op Diagnosis: Left Hip DJD Patient Data Age: 76 Gender: F Height: 1.55 m Weight: 56.6 kg Last Vital Signs Temp 37.4 C 05/22/21 08:36 Pulse 61 05/22/21 08:36 Resp 18 05/22/21 08:36 BP 128/67 05/22/21 08:36 Pulse Ox 97 05/22/21 08:36 Allergies Allergy/AdvReac Type Severity Reaction Status Date / Time No Known Allergies Allergy Verified 06/02/21 06:38 Home Medications Medication Instructions Recorded Confirmed Type ondansetron 4 mg PO TID PRN 03/11/21 05/22/21 History ascorbate calcium (vitamin C) 500 500 mg PO DAILY 03/17/21 06/02/21 History mg tablet fluticasone propionate 50 1 spray INTRANASAL DAILY PRN 03/17/21 06/02/21 History mcg/actuation nasal spray,suspension ferrous sulfate 325 mg PO DAILY 03/19/21 06/02/21 History meclizine [Bonine] 25 mg PO HS 04/10/21 06/02/21 History vitamin A-vit C-vit E-zinc-Cu 1 tablet PO DAILY 04/10/21 06/02/21 History [Vision-Danyelle Preserve] chlorhexidine gluconate 4 % 1 applic TOPICAL ONCE #237 ml 05/12/21 05/22/21 Rx topical liquid acetaminophen 500 mg PO Q6H PRN 05/22/21 06/02/21 History cod liver oil 1 cap PO DAILY 05/22/21 06/02/21 History famotidine [Pepcid] 20 mg PO DAILY 05/22/21 06/02/21 History Patient hx anesthesia problems: none Family hx anesthesia problems: none Results Review: All pre-operative results and documents have been reviewed as part of the pre-operative evaluation. 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, noncancerous Hx of total hysterectomy 1984- Abnormal uterine bleeding and uterine fibroids found S/P total hip arthroplasty Family History Family History Father Asthma Mother Scleroderma Sibling Breast cancer Stomach tumor (benign) Social History Social History Smoking packs per day: 0.5 Smoking cigarettes per day: 10.0 Years smoked: 50 Smoking pack-years: 25.00 Smoking status: Former smoker Alcohol intake: current Drinks per week: 1 Alcohol use details: socially Substance use: never Substance use type: does not use Living arrangements: alone Gender identity (if verbalized by the patient): Female Sexual Orientation (if Verbalized by the Patient): Straight or Heterosexual Spiritual care concerns: No Agree to blood products: Yes Anes - Eval Final PreProcedure Day of Procedure 06/01/21 15:39 Patient weight: normal Heart: regular rate and rhythm Lungs: clear to auscultation and normal air movement Airway: Mallampati scale class II Neurological: alert and oriented Last oral intake: >/= 8 hours ASA classification: II Emergent: no Anesthetic plan: proceed Anesthesia type and monitoring: general LMA and ETT Results Review: All pre-operative results and documents have been reviewed as part of the pre-operative evaluation. Informed Consent: The patient's anesthetic plan and its attendant risks and benefits were discussed with the patient/family/POA. Questions were solicited and answers provided to the satisfaction of the patient/family/POA.
[2021-06-02] VITALS (17 sets, daily range): BP systolic 111–150; BP diastolic 51–75; PULSE 58–86; RESP 12–20; TEMP 36.1–37.2; O2SAT 94–100
[2021-06-02] MEDS: ACETAMINOPHEN 500 MG TABLET 1000 MG PO (06:42)
[2021-06-02] MEDS: LACTATED RINGERS 1,000 ML 30 ML IV CONT ×3 (07:03→11:30)
[2021-06-02] MEDS: TRANEXAMIC ACID 1,000MG/ISO100 1,000 MG/100 ML BAG 200 MG IVPB (07:04)
--- NOTE | 2021-06-02 07:26 | WPDHPUPDATE1 ---
History and Physical Update Update Date/Time: 06/02/21 07:26 History and Physical has been reviewed, including an updated exam of the patient. There are NO changes in the patient's condition. Risks, benefits, and alternatives have been discussed and questions answered. Patient agrees to proceed with procedure.
--- NOTE | 2021-06-02 07:37 | WPDHPUPDATE1 ---
History and Physical Update Update Date/Time: 06/02/21 07:37 History and Physical has been reviewed, including an updated exam of the patient. There are NO changes in the patient's condition. Risks, benefits, and alternatives have been discussed and questions answered. Patient agrees to proceed with procedure. will proceed with left total hip replacement
[2021-06-02] MEDS: ceFAZolin 2 GM/D5W 50 ML 2 GM/50 ML BAG IVPB ×3 (07:42→23:04)
[2021-06-02] MEDS: TRANEXAMIC ACID 1,000 MG/10 ML AMPUL 1000 MG IV PUSH (10:01)
--- NOTE | 2021-06-02 10:29 | W.PM.PROC2 ---
Procedure Note - Detailed Date of Procedure 06/02/21 Pre-op Diagnosis Left Hip DJD Post-op Diagnosis same Procedure Performed LEFT REZA Surgeon Piotr Manzano MD Anesthesia spinal Description of Procedure THE PATIENT WAS TAKEN TO THE OPERATING ROOM IN STABLE CONDITION AND A SPINAL ANESTHESIA WAS PREFORMED.SHE WAS PLACED IN THE LATERAL DECUBITUS AND THE LEFT LOWER EXTREMITY WAS PREPPED AND DRAPED IN THE STERILE FASHION. INCISION WAS MADE IN THE POSTERIOR LATERAL SIDE OF THE HIP, DOWN TO THE FASCIA LAYER. THE FASCIA WAS INCISED. THE HIP WAS EXPOSED. THE SHORT EXTERNAL ROTATORS WERE EXPOSED. THE SCIATIC NERVE WAS IDENTIFIED. THERE WAS A HIGH BIFURCATION OF THE NERVE. INCISION WAS MADE THROUGH THE SORT EXTERNAL ROTATORS AND THE CAPSULE OF THE HIP JOINT. THE HIP WAS DISLOCATED. AN OSTEOTOMY WAS MADE TO THE FEMORAL NECK ABOUT 1 CM PROXIMAL TO THE LESSER TROCHANTER. THE ACETABULUM WAS EXPOSED. THERE WAS SEVERE DJD SEEN. BEGINNING WITH A 44 REAMER THE ACETABULUM WAS REAMED TO 50 MM. A 50 MM TRIAL WAS PLACED IN 35 DEG OF ABDUCTION AND ANTEVERSION WAS IN ALIGNMENT WITH THE TRANS ACETABULAR LIGAMENT. THE FIT WAS EXCELLENT. THE TRIAL WAS REMOVED. A 50 MM BIOMET G7 COMPONENT WAS THEN TAPPED IN TO PLACE IN 35 DEG OF ABDUCTION AND ANTEVERSION IN ALIGNMENT WITH THE TRANSVERSE ACETABULAR LIGAMENT. THE FIT WAS EXCELLENT. 2 SCREWS WERE PLACED FOR EXTRA STABILITY. THE ACETABULAR LINER WAS PLACED AND CHECKED FOR STABILITY. NEXT THE FEMUR WAS PREPARED WITH INITIAL CANAL FINDER THEN SEQUENTIAL BROACHING WITH A TAPERLOC HIP SYSTEM, UNTIL AN 11 BROACH FIT WELL IN 15 OF ANTEVERSION. A +0 HIGH OFFSET NECK WITH 36 MM HEAD TRIAL WAS PLACED. THE SHUCK TEST WAS EXCELLENT AND THE STABILITY IN FLEXION AND ROTATION WAS EXCELLENT. LEG LENGTHS WERE GROSSLY EQUAL. TRIALS WERE REMOVED. A BIOMET TAPERLOC 11 STEM WAS PLACED WITH A HIGH OFFSET NECK THE FIT WAS EXCELLENT IN 15 DEG OF ANTEVERSION. A +0 CERAMIC 36 MM FEMORAL HEAD WAS PLACED. THE HIP WAS TRIALED AND THE STABILITY WAS EXCELLENT WERE THE LEG LENGTHS AND THE SHUCK TEST. THE WOUND WAS IRRIGATED WITH STERILE BETADINE AND WATER FOR 3 MIN. THEN WASHED AGAIN. THE CAPSULE AND THE EXTERNAL ROTATORS WERE APPROXIMATED WITH NUMBER 1 VICRYL. THE FASCIA WITH No 2 QUIL AND THE SUB CUTANEOUS LAYER WITH 2-0 ABSORBABLE SUTURE WITH A RUNNING 3-0 SUBCUTICULAR LAYER WELL. DERMABOND WAS PLACED AND STERILE DRESSING WAS APPLIED. PATIENT WAS PLACED BACK ON TO THE SUPINE POSITION AND WAS SENT TO THE RECOVERY ROOM Estimated Blood Loss -150.0 Complications No immediate complications Condition stable Disposition PACU
[2021-06-02] MEDS: fentaNYL CITRATE INJ (*CRX) 100 MCG/2 ML VIAL 25 MCG IV PUSH (11:31)
--- NOTE | 2021-06-02 12:10 | ADMGEN ---
This patient, Ally Fulton, was admitted to 2 Medical Room 247-. Patient/family oriented to hospital policies and general routines including ID bracelet, bed and alarms, visiting hours, pain management, procedures, bathroom and other care routines, personal items, smoking policy, room service/diet, and visiting hours. Information on how to activate the Rapid Response Team has been discussed. Patient/Family are encouraged to report perceived risks to care and to ask questions if they do not understand what they are told or what they should do.
[2021-06-02] MEDS: KCL 20 MEQ/D5/0.45% SOD CHL 1,000 ML 80 ML IV CONT (12:37)
[2021-06-02] MEDS: oxyCODONE HCL (*CRX) 5 MG TAB IR PO ×3 (12:37→23:05)
[2021-06-02 12:38] LABS: Hematocrit 39.1 % (37.0-47.0); Hemoglobin 12.3 g/dL (12.0-15.0)
--- NOTE | 2021-06-02 14:04 | PM.IMCN ---
Assessment and Plan Assessment and plan (1) History of total left hip arthroplasty: Code(s): Z96.642 - Presence of left artificial hip joint Status: Acute Assessment and Plan: postop care per Ortho. Patient denies any nausea vomiting at this time. PT OT per Dr. Manzano. Postop care per Dr. Manzano. Pain management per Dr. Manzano. The patient plans on going home to recover. (2) Anemia: Code(s): D64.9 - Anemia, unspecified Status: Acute Assessment and Plan: At this time her H&H is stable. Please continue to monitor. (3) Chronic GERD: Code(s): K21.9 - Gastro-esophageal reflux disease without esophagitis Status: Acute Assessment and Plan: Patient is on Pepcid and Zofran. HPI Data of Consult Consult date: 06/02/21 Requesting Physician: Piotr Manzano MD Primary Care Provider: Abdullahi Cardozo DO Consult Narrative Narrative: Ally Fulton is a 76 year old female who has a history of having a right hip replacement on 02/24/2021 and did well except for some nausea and vomiting. the patient was found to be anemic after her hip replacement and was positive for occult blood. The patient had a GI workup and did not find a cause of her occult blood. The patient has severe osteoarthritis [id number] to both hips. The patient agreed to undergo a left total hip arthroplasty today per Dr. Manzano. Please see operative note. Patient has no complaints at this time. According to the surgical notes patient had estimated blood loss of 150 without any complications. Last H&H today 12.3 and 39.1. The patient is are regular scd and the hospitalist group was asked to consult. I think the orthopedic group for this consultation. She was consulted on the date of service 06/02/2021 Review of Systems Review of Systems: All systems reviewed & are unremarkable except as noted in HPI and below Constitutional: Constitutional: Reports as per HPI and Reports no additional constitutional complaints Eyes: Eyes: Reports as per HPI and Reports no additional eye complaints ENT: Reports system reviewed and no additional complaints, except as documented and Reports Normal hearing present Cardiovascular: Cardiovascular: Reports no additional cardiovascular complaints Respiratory: Respiratory: Reports no additional respiratory complaints and Reports no additional respiratory complaints Gastrointestinal: Gastrointestinal: Reports as per HPI and Reports no additional gastrointestinal complaints Musculoskeletal: Musculoskeletal: Reports no additional musculoskeletal complaints Integumentary/Breasts: Skin/Breast: Reports system reviewed and no additional complaints, except as docu and Reports as per HPI Neurologic: Reports system reviewed and no additional complaints, except as documented, Reports as per HPI and Reports Normal hearing present Psychiatric: Psychiatric: Reports no additional psychiatric complaints and Reports as per HPI Endocrine: Endocrine: Reports no additional endocrine complaints Hematologic/Lymphatic: Hematologic/Lymphatic: Reports no additional hematologic/lymphatic complaints Allergic/Immunologic: Allergic/Immunologic: Reports no additional allergic/immunologic complaints [facility] Past Medical History Medical History (Updated 06/02/21 @ 14:22 by Elva Ivey NP) Anemia Chronic GERD Constipation due to pain medication Hip arthritis (02/24/21) Obesity Other spondylosis with radiculopathy, lumbar region Surgical History Surgical History (Updated 06/02/21 @ 14:10 by Elva Ivey NP) 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
--- NOTE | 2021-06-02 14:42 | PCPTNOTE ---
On 06/02/21, the student, Carlos A Sarmiento, provided care and completed [facility] documentation on this patient. I have reviewed the student's documentation and agree with the findings.
[2021-06-02] MEDS: MORPHINE SULFATE (*CRX) 4 MG/ML INJ 3 MG IV PUSH ×2 (14:59→20:30)
[2021-06-02] MEDS: RIVAROXABAN 10 MG TABLET PO (16:33)
[2021-06-02] MEDS: DOCUSATE SODIUM 100 MG CAPSULE PO (16:33)
[2021-06-02] MEDS: MECLIZINE HCL 25 MG TABLET PO (20:29)
[2021-06-03] VITALS (8 sets, daily range): BP systolic 109–142; BP diastolic 48–58; PULSE 72–88; RESP 16–20; TEMP 36.4–37.6; O2SAT 92–98
--- NOTE | ~2021-06-03 | XR_ITS ---
XR hip LT 1V DATE: 06/02/2021 10:40 INDICATION: Left total hip replacement TECHNIQUE: Postoperative AP view COMPARISON: None FINDINGS: Status post left femoral head and neck resection and total hip arthroplasty. There is mild expected postoperative subcutaneous emphysema. Diffuse osteopenia. IMPRESSION: Status post left total hip arthroplasty Reviewed, dictated and finalized at location B.
[2021-06-03] MEDS: MORPHINE SULFATE (*CRX) 4 MG/ML INJ 3 MG IV PUSH (02:15)
[2021-06-03 05:40] LABS: Basophils Percent Auto 0.2 % (0.2-1.2); Eosinophils Percent Auto 0.2 % (0-4.4); Hematocrit 34.4 % (37.0-47.0); Immature Granulocyte Absolute 0.05 K/mm3 (0.00-0.031); Immature Granulocyte Percent A 0.4 % (0-0.5); Lymphocytes Absolute Auto 1.83 K/mm3 (0.9-3.2); Lymphocytes Percent Auto 14.9 % (18.3-44.2); Mean Corpuscular Hemoglobin 31.1 pg (26-34); Mean Corpuscular Volume 97.2 fl (80-100); Mean Platelet Volume 8.6 fl (7.4-10.4); Monocytes Absolute Auto 1.7 K/mm3 (0.1-0.6); Monocytes Percent Auto 13.5 % (2.6-8.5); Neutrophils Absolute Auto 8.7 K/mm3 (1.3-6.7); Neutrophils Percent Auto 70.8 % (45.5-73.1); Platelet Count Result 274 k/mm3 (150-375); Red Blood Count 3.54 M/mm3 (4.2-5.4); Red Cell Distribution Width 14.6 % (11.5-14.5); White Blood Count 12.3 K/mm3 (4.5-10.0)
[2021-06-03 05:56] LABS: Anion Gap 4 mmol/L (8-16); Blood Urea Nitrogen 13 mg/dL (7-17); Calcium 8.4 mg/dL (8.4-10.2); Carbon Dioxide 28 mmol/L (22-30); Chloride 101 mmol/L (98-107); Estimated CRCL calculation 50 ml/min; Estimated Glomerular Filt Rate > 60; Glucose 120 mg/dL (65-110); Potassium 4.4 mmol/L (3.4-5.0); Sodium 133 mmol/L (137-145)
[2021-06-03] MEDS: oxyCODONE HCL (*CRX) 5 MG TAB IR PO ×3 (06:17→20:22)
[2021-06-03] MEDS: ceFAZolin 2 GM/D5W 50 ML 2 GM/50 ML BAG IVPB (08:15)
[2021-06-03] MEDS: FERROUS SULFATE 324 MG TABLET PO (08:15)
[2021-06-03] MEDS: ASCORBIC ACID 500 MG TABLET PO (08:16)
[2021-06-03] MEDS: FAMOTIDINE 20 MG TABLET PO (08:16)
[2021-06-03] MEDS: OPTI-GEN TAB 1 TABLET PO (08:16)
[2021-06-03] MEDS: DOCUSATE SODIUM 100 MG CAPSULE PO ×2 (08:16→17:33)
[2021-06-03] MEDS: CELECOXIB 200 MG CAPSULE PO (08:16)
[2021-06-03] MEDS: ACETAMINOPHEN 500 MG TABLET PO (08:18)
--- NOTE | 2021-06-03 11:30 | PM.IMPN ---
Progress Note: A&P Assessment and Plan (1) History of total left hip arthroplasty: Code(s): Z96.642 - Presence of left artificial hip joint Status: Acute Assessment and Plan: Postop care per Ortho. PT OT per Dr. Manzano. Pain management per Dr. Manzano. Discharge planning per Dr. Manzano. (2) Anemia: Code(s): D64.9 - Anemia, unspecified Status: Acute Assessment and Plan: Patient states after her last joint replacement she had issues with anemia and was admitted into our hospital where she had an EGD and colonoscopy which found no acute reasons for her anemia. She was started on iron and PPI and her H&H have slowly improved back to normal. At this time her H&H is stable. Please continue to monitor. (3) Chronic GERD: Code(s): K21.9 - Gastro-esophageal reflux disease without esophagitis Status: Acute Assessment and Plan: Patient is on Pepcid and Zofran. Time Spent With Patient Time with patient: 25 - 35 minutes Subjective Date/time seen: 06/03/21 11:30 Interval history: Date of Service 06/03/21: Patient reports having some pain after her surgery yesterday and after working with physical therapy this morning. She denies any lightheadedness, dizziness, hematochezia, melena, nausea, vomiting, abdominal pain, chest pain, shortness of breath, cough, leg swelling, calf pain, or any other symptoms at this time. Review of Systems Review of Systems: All systems reviewed & are unremarkable except as noted in HPI and below Exam Narrative: General: 76-year-old woman laying flat in bed resting, watching TV. Appears comfortable. In no acute distress. Skin: No jaundice or cyanosis. Good skin turgor. Neck: Full range of motion. Supple. Respiratory: Lungs are clear to auscultation bilaterally. No bony chest wall tenderness. Cardiovascular: The heart has a regular rate and rhythm without murmur. No carotid bruits. Lower extremities: Ice pack in place to left hip. No lower extremity edema. Distal pulses are easily palpated. No calf tenderness to palpation. Gastrointestinal: The abdomen is soft, nontender and nondistended with active bowel sounds. Psychiatric: Lucid and oriented. Memory intact. Neurologic: No focal deficits. Speech is clear. No facial drooping. Objective Data Vital Signs Vital Signs: Vital Signs - 24 hr 06/02/21 11:45 06/02/21 12:10 06/02/21 12:25 Temperature 97.0 F L 97.4 F L Pulse Rate 75 70 67 Respiratory Rate 18 18 18 Blood Pressure 119/66 111/75 128/57 L Pulse Oximetry 94 98 100 06/02/21 12:55 06/02/21 13:55 06/02/21 18:00 Temperature 98.3 F 97.5 F L 98.5 F Pulse Rate 66 69 86 Respiratory Rate 18 20 18 Blood Pressure 127/51 L 150/66 H 112/55 L Pulse Oximetry 99 98 98 06/02/21 20:00 06/02/21 20:22 06/02/21 20:23 Temperature 99 F 99 F Pulse Rate 86 83 83 Respiratory Rate 20 18 18 Blood Pressure 132/55 L 132/55 L Pulse Oximetry 98 95 95 06/02/21 20:24 06/03/21 00:25 06/03/21 04:20 Temperature 99.6 F 99 F Pulse Rate 86 88 84 Respiratory Rate 20 18 20 Blood Pressure 109/49 L 124/54 L Pulse Oximetry 98 92 94 06/03/21 04:21 06/03/21 10:10 Temperature 99 F 98.1 F Pulse Rate 84 77 Respiratory Rate 20 16 Blood Pressure 124/54 L 110/58 L Pulse Oximetry 94 97 Intake/Output Intake/Output: Intake & Output 05/31/21 06/01/21 06/02/21 06/03/21 23:59 23:59 23:59 23:59 Intake Total 1940 360 Output Total 700 400 Balance 1240 -40 Meds/Results Medications: Active Medications Generic Name Dose Route Start Last Admin Trade Name Freq PRN Reason Stop Dose Admin Acetaminophen 500 mg 06/02/21 10:38 06/03/21 08:18 Acetaminophen 500 Mg Tablet PO 500 mg Q6H PRN Administration Pain Ascorbic Acid 500 mg 06/03/21 09:00 06/03/21 08:16 Ascorbic Acid 500 Mg Tablet PO 500 mg DAILY LEXIE Administration Celecoxib 200 mg 06/03/21 09:00 06/03/21 08:16 Celecoxib 200 Mg Cap
--- NOTE | 2021-06-03 14:24 | WPDANESPN ---
Anes - Prog Note Post-Op Date/Time: 06/03/21 14:24 Cardiovascular status: normal Respiratory status: normal Airway patency: baseline Mental status: baseline Post-Op hydration status: normal Vital Signs: Last Vital Signs Temp 36.7 C 06/03/21 10:10 Pulse 77 06/03/21 10:10 Resp 16 06/03/21 10:10 BP 110/58 L 06/03/21 10:10 Pulse Ox 97 06/03/21 10:10 Pain Score (VAS): 2 I/O: Intake & Output 06/02/21 06/03/21 06/03/21 23:59 07:59 15:59 Intake Total 990 190 410 Output Total 400 400 Balance 590 -210 410 Laboratory Tests 06/03/21 05:19 06/03/21 05:18 06/03/21 06/03/21 05:18 05:19 WBC 12.3 H RBC 3.54 L Hgb 11.0 L Hct 34.4 L MCV 97.2 MCH 31.1 MCHC 32.0 RDW 14.6 H Plt Count 274 MPV 8.6 Immature Gran % (Auto) 0.4 Neut % (Auto) 70.8 Lymph % (Auto) 14.9 L [place] % (Auto) 13.5 H Eos % (Auto) 0.2 Baso % (Auto) 0.2 Lymph # (Auto) 1.83 [place] # (Auto) 1.7 H Eos # (Auto) 0.0 Baso # (Auto) 0.0 Abs Immat Gran (auto) 0.05 H Absolute Neuts (auto) 8.7 H Absolute Nucleated RBC 0.0 Nucleated RBC % 0.0 Sodium 133 L Potassium 4.4 Chloride 101 Carbon Dioxide 28 Anion Gap 4 L BUN 13 D Creatinine 0.60 L Estim Creat Clear Calc 50 Estimated GFR > 60 Glucose 120 H Calcium 8.4 Post-procedural complaints: none Patient Feedback: Patient satisfied with anesthetic care.
--- NOTE | 2021-06-03 15:06 | PM.PNORT ---
Progress Note: A&P Additional Plan POD 1 DOING WELL. HAVING SOME PAIN CONTROL ISSUES. SHE WILL CONTINUE PT AND MOST LIKELY READY FOR D/C TOMORROW. 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[place] INTACT [employer]G [employer] SIGN Objective Data Vital Signs Vital Signs: Vital Signs - 24 hr 06/02/21 18:00 06/02/21 20:00 06/02/21 20:22 Temperature 36.9 C 37.2 C Pulse Rate 86 86 83 Respiratory Rate 18 20 18 Blood Pressure 112/55 L 132/55 L Pulse Oximetry 98 98 95 06/02/21 20:23 06/02/21 20:24 06/03/21 00:25 Temperature 37.2 C 37.6 C Pulse Rate 83 86 88 Respiratory Rate 18 20 18 Blood Pressure 132/55 L 109/49 L Pulse Oximetry 95 98 92 06/03/21 04:20 06/03/21 04:21 06/03/21 10:10 Temperature 37.2 C 37.2 C 36.7 C Pulse Rate 84 84 77 Respiratory Rate 20 20 16 Blood Pressure 124/54 L 124/54 L 110/58 L Pulse Oximetry 94 94 97 Intake/Output Intake/Output: Intake & Output 05/31/21 06/01/21 06/02/21 06/03/21 23:59 23:59 23:59 23:59 Intake Total 1940 600 Output Total 700 400 Balance 1240 200 Meds/Results Medications: Active Medications Generic Name Dose Route Start Last Admin Trade Name Freq PRN Reason Stop Dose Admin Acetaminophen 500 mg 06/02/21 10:38 06/03/21 08:18 Acetaminophen 500 Mg Tablet PO 500 mg Q6H PRN Administration Pain Ascorbic Acid 500 mg 06/03/21 09:00 06/03/21 08:16 Ascorbic Acid 500 Mg Tablet PO 500 mg DAILY LEXIE Administration Celecoxib 200 mg 06/03/21 09:00 06/03/21 08:16 Celecoxib 200 Mg Capsule PO 200 mg DAILY LEXIE Administration Diazepam 5 mg 06/02/21 10:45 Diazepam (*Crx) 5 Mg Tablet PO Q6H PRN Anxiety/Muscle Spasm Docusate Sodium 100 mg 06/02/21 17:00 06/03/21 08:16 Docusate Sodium 100 Mg Capsule PO 100 mg BID LEXIE Administration Famotidine 20 mg 06/03/21 09:00 06/03/21 08:16 Famotidine 20 Mg Tablet PO 20 mg DAILY LEXIE Administration Fentanyl Citrate 25 mcg 06/01/21 15:39 06/02/21 11:31 Fentanyl Citrate Inj (*Crx) 100 Mcg/2 Ml Vial IV PUSH 25 mcg Q2M PRN Administration Pain Ferrous Sulfate 324 mg 06/03/21 09:00 06/03/21 08:15 Ferrous Sulfate 324 Mg Tablet PO 324 mg DAILY LEXIE Administration Magnesium Hydroxide 30 ml 06/02/21 10:39 Magnesium Hydroxide Susp 30 Ml Udc PO BID PRN Constipation Meclizine HCl 25 mg 06/02/21 21:00 06/02/21 20:29 Meclizine Hcl 25 Mg Tablet PO 25 mg HS LEXIE Administration Morphine Sulfate 3 mg 06/02/21 10:39 06/03/21 02:15 Morphine Sulfate (*Crx) 4 Mg/Ml Inj IV PUSH 3 mg Q3H PRN Administration Pain Rated 7-10 Multivitamins/Minerals 1 tablet 06/03/21 09:00 06/03/21 08:16 Opti-Gen Tab PO 1 tablet QAM LEXIE Administration Naloxone HCl 0.1 mg 06/02/21 10:39 Naloxone Hcl 0.4 Mg/Ml Vial IV PUSH Q2M PRN Opiate Reversal Ondansetron HCl 4 mg 06/01/21 15:39 Ondansetron Inj 4 Mg/2 Ml Vial IV PUSH ONCE PRN Nausea Ondansetron HCl 4 mg 06/02/21 10:38 Ondansetron Hcl Odt 4 Mg Tablet PO TID PRN Nausea Ondansetron HCl 4 mg 06/02/21 10:45 Ondansetron Inj 4 Mg/2 Ml Vial IV PUSH Q4H PRN Nausea And Vomiting Oxycodone HCl 5 mg 06/02/21 10:39 06/03/21 14:24 Oxycodone Hcl (*Crx) 5 Mg Tab Ir PO 5 mg Q4H PRN Administration Pain Rated 4-6 Rivaroxaban 10 mg 06/02/21 17:00 06/02/21 16:33 Rivaroxaban 10 Mg Tablet PO 07/06/21 17:01 10 mg DAILY@1700 [facility] Administration Radiology Results: ITS Impressions Hip X-Ray 06/02/21 10:47 IMPRESSION: Status post left total hip arthroplasty Labs Labs: Laboratory Results - last 24 hr 06/03/21 06/03/21 05:18 05:19 WBC 12.3 H RBC 3.54 L Hgb 11.0 L Hct 34.4 L MCV 97.2 MCH 31.1 MCHC 32.0 RDW 14.6 H Plt Count 274 MPV 8.6 Immature Gran
[2021-06-03] MEDS: RIVAROXABAN 10 MG TABLET PO (17:33)
[2021-06-03] MEDS: MECLIZINE HCL 25 MG TABLET PO (20:23)
[2021-06-04] MEDS: oxyCODONE HCL (*CRX) 5 MG TAB IR PO ×2 (02:31→08:05)
[2021-06-04 05:03] VITALS: BP 108/42; PULSE 84; RESP 16; TEMP 36.5; O2SAT 91
[2021-06-04 05:48] LABS: Hematocrit 31.5 % (37.0-47.0); Hemoglobin 10.2 g/dL (12.0-15.0)
[2021-06-04] MEDS: OPTI-GEN TAB 1 TABLET PO (08:06)
[2021-06-04] MEDS: DOCUSATE SODIUM 100 MG CAPSULE PO (08:06)
[2021-06-04] MEDS: FAMOTIDINE 20 MG TABLET PO (08:06)
[2021-06-04] MEDS: CELECOXIB 200 MG CAPSULE PO (08:06)
[2021-06-04] MEDS: FERROUS SULFATE 324 MG TABLET PO (08:06)
[2021-06-04] MEDS: ASCORBIC ACID 500 MG TABLET PO (08:06)
--- NOTE | 2021-06-04 09:12 | PM.PNORT ---
Progress Note: A&P Assessment and Plan (1) S/P total hip arthroplasty: Qualifiers: Laterality: right Qualified Code(s): Z96.641 - Presence of right artificial hip joint Code(s): Z96.649 - Presence of unspecified artificial hip joint Status: Acute Assessment and Plan: POD #2: Left REZA Continue PT/OT. REZA precautions. Fall Risk. WBAT. Walker. Pain control. Ice. Bowel Regimen. DVT prophylaxis. SCDs. Incentive Spirometry. Monitor dressing. Change prior to discharge. Dispo: Home with Home Health likely today pending progress with PT/OT. Subjective Subjective Date/Time Seen: 06/04/21 09:12 Review of Systems Constitutional: Constitutional: Denies chills, Denies fatigue, Denies fever(s), Denies night sweats and Denies weakness Cardiovascular: Cardiovascular: Denies chest pain, Denies lightheadedness, Denies palpitations and Denies dyspnea Respiratory: Respiratory: Denies cough, Denies dyspnea and Denies wheezing Gastrointestinal: Gastrointestinal: Denies abdominal pain, Denies diarrhea, Denies nausea and Denies vomiting Musculoskeletal: Musculoskeletal: Reports arthralgias (left hip ), Reports joint swelling (left hip ) and Denies numbness Neurologic: Denies numbness and Denies weakness Endocrine: Endocrine: Denies fatigue and Denies palpitations Allergic/Immunologic: Allergic/Immunologic: Denies wheezing Exam Const: General: comfortable and no acute distress Resp: Effort & Inspection: normal respiratory effort Cardio: Rate: regular rate Rhythm: regular rhythm GI: Inspection: non-distended Skin: General skin exam: normal color Wounds: wounds noted (incision left hip C/D/I ) Extrem: Left lower extremity: hip/thigh Details: tenderness Location: of the hip Location: laterally and anteriorly, swelling (thigh soft ) Location: of the hip (lateral. ), abnormal ROM (limitations with internal/external rotation and flexion/extension due to recent surgical intervention ) and other (incision lateral hip c/d/i. ), knee Details: normal to inspection and normal ROM; no tenderness and no swelling, lower leg (Negative Wilfrido's Sign ) Details: no edema, ankle (+ankle dorsiflexion/plantarflexion ) Details: normal to inspection, no edema and normal ROM; no tenderness, no swelling and no warmth and foot Details: normal capillary refill, toes with normal ROM, vascular exam Details: dorsalis pedis pulse present and motor-sensory exam light-touch normal in all toes; no tenderness, no ecchymosis and no crepitus Psych: Mental Status: mental status grossly normal Affect: normal affect Objective Data Vital Signs Vital Signs: Vital Signs - 24 hr 06/03/21 10:10 06/03/21 14:10 06/03/21 18:00 Temperature 36.7 C 36.5 C 36.6 C Pulse Rate 77 72 78 Respiratory Rate 16 16 18 Blood Pressure 110/58 L 120/54 L 142/54 H Pulse Oximetry 97 97 92 06/03/21 20:00 06/03/21 20:18 06/04/21 05:03 Temperature 36.4 C L 36.5 C Pulse Rate 79 79 84 Respiratory Rate 20 20 16 Blood Pressure 133/48 L 108/42 L Pulse Oximetry 98 98 91 Intake/Output Intake/Output: Intake & Output 06/01/21 06/02/21 06/03/21 06/04/21 23:59 23:59 23:59 23:59 Intake Total 1940 1120 Output Total 700 700 300 Balance 1240 420 -300 Meds/Results Medications: Active Medications Generic Name Dose Route Start Last Admin Trade Name Freq PRN Reason Stop Dose Admin Acetaminophen 500 mg 06/02/21 10:38 06/03/21 08:18 Acetaminophen 500 Mg Tablet PO 500 mg Q6H PRN Administration Pain Ascorbic Acid 500 mg 06/03/21 09:00 06/04/21 08:06 Ascorbic Acid 500 Mg Tablet PO 500 mg DAILY LEXIE Administration Celecoxib 200 mg 06/03/21 09:00 06/04/21 08:06 Celecoxib 200 Mg Capsule PO 200 mg DAILY LEXIE Administration Diazepam 5 mg 06/02/21 10:45 Diazepam (*Crx) 5 Mg Tablet PO Q6H PRN Anxiety/Muscle Spasm Docusate Sodium 100 mg 06/02/21 17:00 06/04/21 08:06 Docusate Sodium 100 M
[2021-06-04 12:13] VITALS: BP 128/48; PULSE 72
--- NOTE | 2021-06-04 12:42 | PM.DS ---
DS: Admitting Diagnosis Discharge Date 06/04/2021 Admitting Diagnosis left hip DJD DS: Discharge Diagnosis Discharge Diagnosis (1) S/P total hip arthroplasty: Qualifiers: Laterality: right Qualified Code(s): Z96.641 - Presence of right artificial hip joint Code(s): Z96.649 - Presence of unspecified artificial hip joint Status: Acute Assessment and Plan: POD #2: Left REZA Continue PT/OT. REZA precautions. Fall Risk. WBAT. Walker. Pain control. Ice. Bowel Regimen. DVT prophylaxis. SCDs. Incentive Spirometry. Monitor dressing. Change prior to discharge. Dispo: Home with Home Health likely today pending progress with PT/OT. DS: Summary Hospital Course Reason for hospitalization: left total hip arthroplasty Hospital Course: 76-year-old female admitted status post left total hip arthroplasty for postoperative medical care, pain control and mobilization with physical and occupational therapy. Patient had difficulty with pain control on postop day 1. She improved on postop day 2. She is working well with PT and OT. She feels safe to be discharged home at this time. She has been cleared from a medical and physical therapy/occupational therapy standpoint as well. Reviewed total knee arthroplasty precautions. Reviewed need for walker at all times. Patient to follow-up in the outpatient orthopedic clinic as previously scheduled. Status at Discharge Functional status at discharge: uses cane/walker Overall status at discharge: patient is progressing back to baseline Time Spent with Patient Time attestation: Total time spent providing and/or coordinating discharge services: Time spent: Less than 30 minutes DS: Data Data Completed and Pending Labs on day of discharge: Labs from last 24 hours 06/04/21 05:30 Hgb 10.2 L Hct 31.5 L Discharge Plan Discharge Attending physician on discharge: Piotr Manzano Consulting providers: Elijah Francisco ; Nanette Gomes Discharging Clinician: Ct Hodges Anticipated Discharge Date/Time: 06/04/21 15:00 Patient Disposition: Home Health Service Activity: may shower and no driving Diet: as tolerated Wound Care Instructions: follow printed instructions Discharge Instructions: Post Op Total Hip Replacement Instructions Dr. Piotr Manzano ? Your dressing will be changed prior to your discharge. You will be sent home with one additional dressing to be changed in 5 days by the home health RN. Your incision was closed with dermabond, allow the dermabond to fall off naturally and do not disrupt incision healing. ? You may shower with your dressing but do not submerge in a bath tub. ? Do not drive or operate machinery until you are released by Dr. Manzano. ? Do not walk without a walker for any reason until you are released by Dr. Manzano. ? Continue to apply ice to the hip intermittently for additional pain relief. Protect your skin with a towel or pillow case. ? Continue to follow strict total hip replacement precautions. ? Your follow up appointment is indicated in your discharge instructions. ? Your medications have been sent to your pharmacy. ? Please contact our office with any questions/concerns regarding your hip at [phone]. Per Care Coordination: [facility] at discharge for nursing, PT and OT. Call [phone] at discharge and fax discharge orders to [phone]. Patient Instructions: Antibiotic Form, Rivaroxaban (By mouth), How to Stop Smoking (DC) Stand Alone Forms: General Discharge Information Follow-up/Referrals: Piotr Manzano MD [Physician] - Keep Reg. Scheduled Appt. Discharge Medications: New docusate sodium 100 mg Capsule 100 mg PO BID 30 Days Qty: 60 RF: 0 oxycodone 5 mg Tablet 5 mg PO Q4-6H PRN (Reason: Pain Rated 4-6) Qty: 30 RF: 0 aspirin 325 mg tablet,delayed release (DR/EC) 325 mg PO DAILY Qty: 26 RF: 0 Continued ondansetron 4 mg t
--- NOTE | 2021-06-04 13:29 | PM.IMPN ---
Progress Note: A&P Assessment and Plan (1) History of total left hip arthroplasty: Code(s): Z96.642 - Presence of left artificial hip joint Status: Acute Assessment and Plan: Postop care per Ortho. PT OT per Dr. Manzano. Pain management per Dr. Manzano. Discharge planning per Dr. Manzano. (2) Anemia: Code(s): D64.9 - Anemia, unspecified Status: Acute Assessment and Plan: Patient states after her last joint replacement she had issues with anemia and was admitted into our hospital where she had an EGD and colonoscopy which found no acute reasons for her anemia. She was started on iron and PPI and her H&H have slowly improved back to normal. At this time her H&H is stable. No signs of acute bleeding. Switched back to Pantoprozole PPI BID while on DVT Prophalyxis and will check CBC 06/08/21 and have her follow up with PCP. Return to ER warnings given. Follow up instructions given. Patient understands and agrees with the plan. All questions answered. (3) Chronic GERD: Code(s): K21.9 - Gastro-esophageal reflux disease without esophagitis Status: Acute Assessment and Plan: Stable Time Spent With Patient Time with patient: 25 - 35 minutes Subjective Date/time seen: 06/04/21 13:29 Interval history: Date of Service 06/04/21: She is feeling well today. Still having hip pain, but doing better today. Sitting up eating without any issues. She denies any lightheadedness, dizziness, hematochezia, melena, bruising, nausea, vomiting, abdominal pain, chest pain, shortness of breath, cough, leg swelling, calf pain, or any other symptoms at this time. Review of Systems Review of Systems: All systems reviewed & are unremarkable except as noted in HPI and below Exam Narrative: General: 76-year-old woman sitting up in the chair eating lunch. Appears comfortable. In no acute distress. Skin: No jaundice or cyanosis. Good skin turgor. Neck: Full range of motion. Supple. Respiratory: Lungs are clear to auscultation bilaterally. No bony chest wall tenderness. Cardiovascular: The heart has a regular rate and rhythm without murmur. No carotid bruits. Lower extremities: Left hip dressing in place, no signs of drainage or ecchymosis. No lower extremity edema. Distal pulses are easily palpated. No calf tenderness to palpation. Gastrointestinal: The abdomen is soft, nontender and nondistended with active bowel sounds. Psychiatric: Lucid and oriented. Memory intact. Neurologic: No focal deficits. Speech is clear. No facial drooping. Objective Data Vital Signs Vital Signs: Vital Signs - 24 hr 06/03/21 14:10 06/03/21 18:00 06/03/21 20:00 Temperature 97.7 F 97.8 F Pulse Rate 72 78 79 Respiratory Rate 16 18 20 Blood Pressure 120/54 L 142/54 H Pulse Oximetry 97 92 98 06/03/21 20:18 06/04/21 05:03 Temperature 97.5 F L 97.7 F Pulse Rate 79 84 Respiratory Rate 20 16 Blood Pressure 133/48 L 108/42 L Pulse Oximetry 98 91 Intake/Output Intake/Output: Intake & Output 06/01/21 06/02/21 06/03/21 06/04/21 23:59 23:59 23:59 23:59 Intake Total 1940 1120 Output Total 700 700 300 Balance 1240 420 -300 Meds/Results Medications: Active Medications Generic Name Dose Route Start Last Admin Trade Name Freq PRN Reason Stop Dose Admin Acetaminophen 500 mg 06/02/21 10:38 06/03/21 08:18 Acetaminophen 500 Mg Tablet PO 500 mg Q6H PRN Administration Pain Ascorbic Acid 500 mg 06/03/21 09:00 06/04/21 08:06 Ascorbic Acid 500 Mg Tablet PO 500 mg DAILY LEXIE Administration Celecoxib 200 mg 06/03/21 09:00 06/04/21 08:06 Celecoxib 200 Mg Capsule PO 200 mg DAILY LEXIE Administration Diazepam 5 mg 06/02/21 10:45 Diazepam (*Crx) 5 Mg Tablet PO Q6H PRN Anxiety/Muscle Spasm Docusate Sodium 100 mg 06/02/21 17:00 06/04/21 08:06 Docusate Sodium 100 Mg Capsule PO 100 mg BID LEXIE Administration Ferrous Sulfate
[2021-06-04 14:00] VITALS: BP 128/52; PULSE 76; RESP 16; TEMP 36.6; O2SAT 92
[2021-06-04 14:10] VITALS: BP 125/48; BP 128/48; PULSE 83; PULSE 99
== END 2021-06-04 15:15 | disposition home health service (06) ==
LOC: ANHSURGERY 15:56 → ANH2MED 15:56
PROVIDERS: Physician Assistant; Admitting Provider Orthopaedic Surgery; PCP Family Medicine; Visit Provider Orthopaedic Surgery
PROC: (CPT 27130; principal; 2021-06-02 07:30)
DX: M16.12 Unilateral primary osteoarthritis, left hip (principal); D64.9 Anemia, unspecified; K21.9 Gastro-esophageal reflux disease without esophagitis; Z96.641 Presence of right artificial hip joint; Z87.891 Personal history of nicotine dependence
CPT/HCPCS: 27130; 36415; 73501; 80048; 85014; 85018; 85025; 97110; 97116; 97161; 97165; 97530; 97535; A9270; C1776; G0378; J0171; J0690; J2250; J2270; J2704; J2795; J3010; J3480; J7120

== ENCOUNTER 2021-06-08 14:55 | Outpatient (NON) | payer MEDICARE, SELFPAY ==
[2021-06-08 15:07] LABS: Hematocrit 34.4 % (35.0-42.0); Hemoglobin 10.9 g/dL (11.7-13.8); Mean Corpuscular HGB Conc 31.7 g/dL (32.0-36.0); Mean Corpuscular Hemoglobin 30.2 pg (27.0-31.0); Mean Corpuscular Volume 95.3 fL (78.0-102.0); Platelet Count Result 452 K/mm3 (150-420); Red Blood Count 3.61 M/mm3 (4.20-5.40); Red Cell Distribution Width 14.8 % (11.6-14.4); White Blood Count 8.8 K/mm3 (4.8-10.8)
== END 2021-06-08 14:56 | disposition home or self-care (01) ==
LOC: CHSLAB 14:57
PROVIDERS: Visit Provider Family Medicine
DX: D64.9 Anemia, unspecified (principal)
CPT/HCPCS: 36415; 85027

== ENCOUNTER 2021-12-15 08:03 | Outpatient (CLI) | payer MEDICARE, SELFPAY ==
--- NOTE | ~2021-12-15 | XR_ITS ---
XR hip LT min 2V DATE: 12/15/2021 08:32 INDICATION: Generalized left hip pain. Postoperative for one year. TECHNIQUE: AP, lateral and crosstable lateral views of left hip COMPARISON: 06/2021 pelvis and left hip FINDINGS: Status post left total hip arthroplasty. Osteopenia. No fracture or dislocation, periosteal reaction or bone destruction of the left hip is detected. Status post right hip arthroplasty. Normal alignment at the pubic symphysis and sacroiliac joints. Severe degenerative disc disease at L5-S1. IMPRESSION: Bilateral total hip arthroplasty No left hip fracture or dislocation Severe degenerative disc disease at L5-S1 Osteopenia Reviewed, dictated and finalized at location A.
== END 2021-12-15 08:04 | disposition home or self-care (01) ==
LOC: CHSIMG 08:08
PROVIDERS: PCP Family Medicine; Visit Provider Orthopaedic Surgery
DX: M25.552 Pain in left hip (principal)
CPT/HCPCS: 73502

== ENCOUNTER 2023-11-30 10:39 | Outpatient (CLI) | payer MEDICARE, SELFPAY ==
[2023-11-30 11:07] LABS: Basophils Absolute Auto 0.05 K/mm3 (0.00-0.10); Basophils Percent Auto 0.6 % (0.0-1.0); Eosinophils Absolute Auto 0.11 K/mm3 (0.02-0.50); Eosinophils Percent Auto 1.2 % (1.0-6.0); Hematocrit 42.7 % (35.0-42.0); Hemoglobin 13.3 g/dL (11.7-13.8); Immature Granulocyte Absolute 0.02 K/mm3 (0.00-0.00); Immature Granulocyte Percent A 0.2 % (0.0-0.0); Lymphocytes Absolute Auto 1.83 K/mm3 (1.10-4.50); Lymphocytes Percent Auto 20.6 % (18.0-42.0); Mean Corpuscular HGB Conc 31.1 g/dL (32-36); Mean Corpuscular Hemoglobin 30.3 pg (27.0-31.0); Mean Corpuscular Volume 97.3 fL (78.0-102.0); Mean Platelet Volume 8.1 fl (9.2-11.8); Monocytes Absolute Auto 0.68 K/mm3 (0.10-0.90); Monocytes Percent Auto 7.6 % (2.0-11.0); Neutrophils Absolute Auto 6.21 K/mm3 (1.70-7.20); Neutrophils Percent Auto 69.8 % (50.0-70.0); Platelet Count Result 390 K/mm3 (150-420); Red Blood Count 4.39 M/mm3 (4.20-5.40); Red Cell Distribution Width 14.8 % (11.6-14.4); White Blood Count 8.9 K/mm3 (4.8-10.8)
[2023-11-30 15:16] LABS: Cholesterol 228 mg/dL (0-200); HDL Direct 64 mg/dL (40-60); Iron 83 ug/dL (50-170); LDL Cholesterol Calculated 144 mg/dL (<130); Percent Iron Saturation 31 % (12-57); Triglycerides 102 mg/dL (0-150)
[2023-11-30 15:18] LABS: Alanine Aminotransferase 23 U/L (14-59); Albumin Level 3.5 g/dL (3.4-5.0); Alkaline Phosphatase 119 U/L (46-116); Anion Gap 8 mmol/L (4-12); Aspartate Amino Transferase 25 U/L (15-37); Bilirubin,Total 0.3 mg/dL (0.00-1.00); Blood Urea Nitrogen 20 mg/dL (7-18); Calcium 9.2 mg/dL (8.5-10.1); Carbon Dioxide 27 mmol/L (21-32); Chloride 105 mmol/L (98-108); Estimated Glomerular Filt Rate > 60; Glucose 101 mg/dL (70-99); Osmolality Calculated 292 mOsm/kg (285-295); Potassium 4.4 mmol/L (3.5-5.1); Sodium 140 mmol/L (136-145); Thyroid Stimulating Hormone 0.69 uIU/mL (0.36-3.74); Total Protein 7.8 g/dL (6.4-8.2)
== END 2023-11-30 10:40 | disposition home or self-care (01) ==
LOC: CHSLAB 10:40
PROVIDERS: PCP Family Medicine; Visit Provider Nurse Practitioner Family
DX: Z13.6 Encounter for screening for cardiovascular disorders (principal); D64.9 Anemia, unspecified; Z96.641 Presence of right artificial hip joint
CPT/HCPCS: 36415; 80053; 80061; 83540; 83550; 84443; 85025

== ENCOUNTER 2024-02-06 08:52 | Outpatient (CLI) | payer MEDICARE, SELFPAY ==
--- NOTE | ~2024-02-06 | XR_ITS ---
XR knee LT min 4V Ordering provider: Rob Hadley MD History: . difficulty walking, soreness, difficulty with stairs . Comparison: None. FINDINGS: BONES: No acute fracture or dislocation. Osteopenia of the bones. JOINT SPACES: Normal. SOFT TISSUES: Normal. IMPRESSION: No acute osseous abnormality left knee. Reviewed, dictated and finalized at location A.
--- NOTE | ~2024-02-06 | XR_ITS ---
XR hip BI 2V w AP pelvis Ordering provider: Rob Hadley MD History: . Hx of THR 3 years ago, difficulty walking, soreness . Comparison: None. FINDINGS: BONES: No acute fracture or dislocation. HIP JOINT SPACES: Bilateral hip arthroplasty. SACROILIAC JOINT SPACES/LUMBAR SPINE: The sacroiliac joint spaces are normal. Mild degenerative davenport es of the visualized lower lumbar spine. PUBIC SYMPHYSIS: Normal. SOFT TISSUES: Normal. IMPRESSION: No acute osseous abnormality. Reviewed, dictated and finalized at location A.
--- NOTE | ~2024-02-06 | XR_ITS ---
XR knee RT min 4V Ordering provider: Rob Hadley MD History: . difficulty walking, soreness, difficulty with stairs . Comparison: None. FINDINGS: BONES: No acute fracture or dislocation. Osteopenia of the bones. JOINT SPACES: Normal. SOFT TISSUES: Normal. IMPRESSION: No acute osseous abnormality right knee. Consider MRI knee if there is concern for soft tissue internal derangement. Reviewed, dictated and finalized at location A.
== END 2024-02-06 08:53 | disposition home or self-care (01) ==
PROVIDERS: PCP Family Medicine; Visit Provider Orthopaedic Surgery
DX: M25.561 Pain in right knee (principal); M25.552 Pain in left hip; M25.562 Pain in left knee; M25.551 Pain in right hip
CPT/HCPCS: 73521; 73564

== ENCOUNTER 2024-02-07 15:35 | Outpatient (RCR) | payer MEDICARE, SELFPAY ==
--- NOTE | 2024-02-07 17:43 | OPREHPOC ---
Outpatient Therapy Plan of Care This is a Multidisciplinary Plan of Care that may contain components documented by all disciplines (PT, OT, and ST.) PT Problem 1 PT Problem #1 Knowledge Deficit PT Goal 1 Goal The patient will be independent in a home exercise program. Target Visit 4 PT Problem 2 PT Problem #2 Pain PT Goal 1 Goal The patient will report no greater than 3/10 lower back and LE pain with ADLs. Target Visit 10 PT Problem 3 PT Problem #3 Impaired Flexibility PT Goal 1 Goal The patient will demonstrate improved gastroc/ soleus flexibility to mild tightness to improve gait. Target Visit 10 PT Problem 4 PT Problem #4 Impaired Functional Mobil PT Goal 1 Goal 1. The patient will demonstrate 30% or less self perceived disability per the Back Index questionnaire. 2. The patient will demonstrate the ability to transfer sit to/from stand on first attempt with independence. 3. The patient will demonstrate ability to ambulate at least 600 feet during the 6 minute walk test to improve community ambulation. Target Visit 10
--- NOTE | 2024-02-07 17:44 | PTOPEVAL1 ---
Assessment and note entered by Geeta Snyder, PT Evaluation Information Assessment Status Evaluation Diagnosis lumbar spondylosis with radiculopathy Onset 02/06/24 Subjective Information Ally Fulton c/o pain in her legs and she went to the doctor thinking she may have something wrong after having her hips replaced. She had x- rays taken and her hip replacements look good and her knees looked good as well. Her doctor thinks the pain is coming from her back and she has had sciatica and pelvic alignment issues in the past. She notes pain down her legs and tightness in the calf. She is using OTC ibuprofen for pain and is using it daily for pain relief. She notes difficulty standing up from chairs, getting out of bed, walking, and standing for prolonged periods. She lives alone and has been able to perform daily tasks but takes more time to complete tasks and has to take rest breaks. Reported Pain Level Pain Score 5,6: Self Report Assessment PT Clinical Summary Ally Fulton presents with low back pain and bilateral LE pain. She is noting the LE pain comes and goes and limits her ability to stand up from sitting, walk more than household distances, lifting more than light weight, and affects her sleep. She objectively demonstrates decreased and painful lumbar AROM, decreased core strength, decreased hip strength, decreased transfer ability , decreased LE flexibility, altered gait, and a right anterior innominate rotation. She will benefit from skilled PT to address these limitations. Plan of Care Interventions Electrical Stimulation,Gait Training,Hot Pack/Cold Pack,Manual Therapy,Neuro Re-education,Patient/ Caregiver Educati,Therapeutic Activities, Therapeutic Exercise PT Services Indicated Yes Treatment Frequency and 2 times a week for 10 visits Duration These treatments will address the objective and functional deficits as defined above. The patient will be advanced safely and appropriately in order for the patient to progress towards his/her prior level of function. Additional exercises will be introduced and as well as a comprehensive home exercise program upon discharge, if needed, ?to ensure carryover of functional gains achieved in the clinic. This treatment plan has been reviewed and agreement upon by the patient.
--- NOTE | 2024-03-14 15:01 | PTOPPROG ---
Assessment and note entered by Donaldo Martinez Evaluation Information Assessment Status Discharge Diagnosis lumbar spondylosis with radiculopathy Onset 02/06/24 Subjective Information Pt. reports she was doing well till about 2 week ago. She describes her worst pain in the back of the left knee and into the top of the arguelles. She describes the pain as being sharp, and is constantly present with movement. She states that she has changed the way she has been walking due to her increase in pain. She states that she does not currently have a follow up appointment scheduled with her doctor. She reports that she has some relief after treatment today. Pt. request to continue treatment as she is concerned about the way she is walking. Assessment PT Clinical Summary Pt. has attended a total of 10 treatment sessions. She demonstrated initial progress, however has recently regressed and pain has remained the same. She demonstrates continued gait impairments, continued pain, continued l.e. weakness and functional decline. Encouraged the pt. to follow up with her doctor regarding pain. Given her positive response to treatment on this date recommend continued skilled PT in order to improve gait and functional mobility. Plan of Care Interventions Electrical Stimulation,Gait Training,Hot Pack/Cold Pack,Manual Therapy,Neuro Re-education,Patient/ Caregiver Educati,Therapeutic Activities, Therapeutic Exercise PT Services Indicated Yes Treatment Frequency and continue 1x/week x 6 visits focusing on improving Duration pain and improve functional mobility. These treatments will address the objective and functional deficits as defined above. The patient will be advanced safely and appropriately in order for the patient to progress towards his/her prior level of function. Additional exercises will be introduced and as well as a comprehensive home exercise program upon discharge, if needed, ?to ensure carryover of functional gains achieved in the clinic. This treatment plan has been reviewed and agreement upon by the patient.
--- NOTE | 2024-05-02 14:31 | OPREHPOC ---
Outpatient Therapy Plan of Care This is a Multidisciplinary Plan of Care that may contain components documented by all disciplines (PT, OT, and ST.) PT Problem 1 PT Problem #1 Knowledge Deficit PT Goal 1 Goal / Goal Update The patient will be independent in a home exercise program. Target Visit 4 Progress Met PT Problem 2 PT Problem #2 Pain PT Goal 1 Goal / Goal Update The patient will report no greater than 3/10 lower back and LE pain with ADLs. Target Visit 10 Progress Met PT Problem 3 PT Problem #3 Impaired Flexibility PT Goal 1 Goal / Goal Update The patient will demonstrate improved gastroc/ soleus flexibility to mild tightness to improve gait. Target Visit 10 Progress Met PT Problem 4 PT Problem #4 Impaired Functional Mobil PT Goal 1 Goal / Goal Update 1. The patient will demonstrate 30% or less self perceived disability per the Back Index questionnaire. met 2. The patient will demonstrate the ability to transfer sit to/from stand on first attempt with independence. met 3. The patient will demonstrate ability to ambulate at least 600 feet during the 6 minute walk test to improve community ambulation. met Target Visit 10 Progress Met
--- NOTE | 2024-05-02 14:31 | PTOPDC ---
Assessment and note entered by JT File, PT Evaluation Information Assessment Status Discharge Diagnosis lumbar spondylosis with radiculopathy Onset 02/06/24 Subjective Information patient reports she is improved as of late. she reports in the beginning things were going well, but then took a turn, and she needed a mm relaxer from her MD. she reports she is now doing better again. she reports she feels she is ready to be done with therapy at this time, but will continue to do her exercises on her own at home. Reported Pain Level Pain Score 2,2: Self Report Assessment PT Clinical Summary mrs. gomez presents today with low pain in the back and legs. she has achieved all goals for skilled PT as of this date. patient will DC skilled PT, and continue with HEP independent at this time. Plan of Care PT Services Indicated Yes
== END 2024-05-02 15:52 | disposition home or self-care (01) ==
LOC: CHSPT 15:35
PROVIDERS: Visit Provider Orthopaedic Surgery
DX: M47.26 Other spondylosis with radiculopathy, lumbar region (principal)
CPT/HCPCS: 97014; 97110; 97140; 97161; 97530; G0283

== ENCOUNTER 2024-12-11 14:18 | Outpatient (CLI) | payer MEDICARE, SELFPAY ==
[2024-12-11 14:34] LABS: Basophils Absolute Auto 0.06 K/mm3 (0.00-0.10); Basophils Percent Auto 0.6 % (0.0-1.0); Eosinophils Absolute Auto 0.29 K/mm3 (0.02-0.50); Immature Granulocyte Absolute 0.03 K/mm3 (0.00-0.00); Immature Granulocyte Percent A 0.3 % (0.0-0.0); Lymphocytes Percent Auto 17.6 % (18.0-42.0); Mean Corpuscular Hemoglobin 29.7 pg (27.0-31.0); Mean Corpuscular Volume 95.9 fL (78.0-102.0); Mean Platelet Volume 8.1 fl (9.2-11.8); Monocytes Absolute Auto 0.81 K/mm3 (0.10-0.90); Monocytes Percent Auto 8.4 % (2.0-11.0); Neutrophils Absolute Auto 6.76 K/mm3 (1.70-7.20); Neutrophils Percent Auto 70.1 % (50.0-70.0); Platelet Count Result 472 K/mm3 (150-420); Red Blood Count 4.38 M/mm3 (4.20-5.40); Red Cell Distribution Width 15.1 % (11.6-14.4); White Blood Count 9.7 K/mm3 (4.8-10.8)
[2024-12-11 15:15] LABS: Alanine Aminotransferase 19 U/L (14-59); Albumin Level 3.5 g/dL (3.4-5.0); Alkaline Phosphatase 160 U/L (46-116); Anion Gap 9 mmol/L (4-12); Aspartate Amino Transferase 17 U/L (15-37); Bilirubin,Total 0.4 mg/dL (0.00-1.00); Blood Urea Nitrogen 22 mg/dL (7-18); Calcium 9.3 mg/dL (8.5-10.1); Carbon Dioxide 27 mmol/L (21-32); Chloride 103 mmol/L (98-108); Cholesterol 212 mg/dL (0-200); Estimated Glomerular Filt Rate > 60; Glucose 87 mg/dL (70-99); HDL Direct 66 mg/dL (40-60); LDL Cholesterol Calculated 131 mg/dL (<130); Osmolality Calculated 290 mOsm/kg (285-295); Sodium 139 mmol/L (136-145); Total Protein 7.9 g/dL (6.4-8.2); Triglycerides 73 mg/dL (0-150)
--- OUTSIDE RECORDS SUMMARY | 2024-12-11 16:32 | XMS_ITS | Clinical Summary ---
Author Organization [facility] Address [address] [place] [address] Care Team Providers Care Christmas Tree Grower Name Role Phone Abdullahi Cardozo Primary Care Provider Lynsey Jaffe MD Unavailable [phone] Allergies No known active allergies Medications erythromycin (ILOTYCIN) ophthalmic ointment Apply ointment to left eyelid incisions 3 times a day[address] Only place ointment inside the eye for irritation. 3.5 g 3 Active Additional Information Patient not taking.Reported on 04/28/2022 acetaminophen (TYLENOL) 500 mg tablet Take 500 mg by mouth every 6 (six) hours as needed for pain Active ibuprofen (ADVIL,MOTRIN) 200 mg tab/cap Take 400 mg by mouth every 8 (eight) hours as needed for pain Active vit C/E/Zn/coppr/alta tein/zeaxan (PRESERVISION AREDS-2 ORAL)Indication s:supplement Take 1 capsule by mouth every morning Active UNABLE TO FIND Take 1 each by mouth every morning Med Name: ALTATIGOLD EXTRA Active ascorbic acid (VITAMIN C) 1,000 mg tabletIndicatio ns:Vitamin C Deficiency Take 1,000 mg by mouth every morning Active multivitamin capsuleIndicati ons:Vitamin Deficiency Prevention Take 1 capsule by mouth every morning Active turmeric root extract 500 mg capsuleIndicati ons:supplement Take 1,000 mg by mouth every morning Active glucosam/chond- msm1/C/rick/bor (GLUCOSAMINE-CH OND-MSM COMPLEX ORAL)Indication s:supplement Take 2 capsules by mouth every morning Active erythromycin (ILOTYCIN) ophthalmic ointment Apply to left eye 3 (three) times a day Discontinue when irritation resolves 3.5 g 3 2 Active Active Problems Problem Noted Date Diagnosed Date Basal cell carcinoma (BCC) of left upper eyelid 04/20/2022 Lesion of left upper eyelid 11/17/2021 Overview (11/17/2021): Added automatically from request for surgery [id number] Surgical History Surgery Date Site/Laterality Comments HIP ARTHROPLASTY 02/19/2021 - 03/21/2021 Right HIP ARTHROPLASTY 05/22/2021 - 06/21/2021 HYSTERECTOMY 08/22/1983 - 08/21/1984 SPLENECTOMY, TOTAL 08/22/1974 - 08/21/1975 MOHS SURGERY Left Medical History Medical History Date Comments Macular degeneration Cataract PONV (postoperative nausea and vomiting) Social History Tobacco Use Types Packs/Day Years Used Date Smoking Tobacco: Some Days Cigarettes Smokeless Tobacco: Never AUDIT-C Answer Date Recorded Q1: How often do you have a drink containing alc ohol? 2-3 times a week 12/30/2021 Q2: How many drinks containi ng alcohol do you have on a typical day when you are drinking? 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 Gender Identity Female 10/12/2021 2:04 PM WHIPPED TOPPING SUPERVISOR Sexual Orientation Not on file Obstetrics History Last Filed Vital Signs Vital Sign Reading Time Taken Comments Blood Pressure 138/57 01/12/2022 5:00 PM CDT Pulse 66 01/12/2022 5:10 PM CDT Temperature 37 C (98.6 F) 01/12/2022 4:28 PM CDT Respiratory Rate 22 01/12/2022 5:05 PM CDT Oxygen Saturation 98% 01/12/2022 5:10 PM CDT Inhaled Oxygen Concentration - - Weight 59 kg (130 lb) 12/30/2021 9:10 AM CDT Height 154.9 cm (5' 1 ) 12/30/2021 9:10 AM CDT Body Mass Index 24.56 12/30/2021 9:10 AM CDT Plan of Treatment Health Maintenance Due Date Last Done Comments Depression Screening 1945 Osteoporosis Screening-Bone Density Scan 1943 DTaP/Tdap/Td Vaccine (1 - Tdap) 1954 Hepatitis B Screening 1961 Pneumococcal vaccine 65+ (1 of 2 - PCV) 1962 Zoster Vaccine (1 of 2) 1993 Well Visit 65+ 02/12/2008 Fall Risk Assessment 01/12/2023 01/12/2022 Covid-19 Vaccine (2 - 2023- season) 2024 Influenza Vaccine (#1) 2024 Insurance MEDICARE [facility] MEDICARE [employer] Care Teams Christmas Tree Grower Relationship Specialty Start Date End Date Abdullahi Cardozo DO [address] [place] [address] PCP - General Family Medicine 10/12/21 Lynsey Jaffe MD [address] [place] [address] Consulting Physician Dermatology 01/20/22
--- OUTSIDE RECORDS SUMMARY | 2024-12-11 16:32 | XMS_ITS | Referral Summary ---
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
== END 2024-12-11 14:19 | disposition home or self-care (01) ==
LOC: CHSLAB 14:19
PROVIDERS: PCP Family Medicine; Visit Provider Nurse Practitioner Family
DX: D64.9 Anemia, unspecified (principal); E78.5 Hyperlipidemia, unspecified
CPT/HCPCS: 36415; 80053; 80061; 84443; 85025